=== PATIENT | male | born 1990 | race Caucasian/White ===

== ENCOUNTER 2018-02-06 12:20 | Emergency (ER) | payer OTHER, SELFPAY ==
[2018-02-06 12:21] VITALS: BP 148/93; PULSE 77; RESP 18; TEMP 36.6; O2SAT 99; BMI 50.1
[2018-02-06 12:49] VITALS: PULSE 62; RESP 18
[2018-02-06] MEDS: Ipratropium/Albuterol Sulfate 3 ML AMPUL.NEB INHALATION (12:49)
[2018-02-06 12:53] VITALS: O2SAT 98
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
[2018-02-06 13:29] VITALS: BP 141/86; PULSE 92; RESP 16; O2SAT 98
--- NOTE | 2018-02-06 13:30 | ED.RN ---
PT DISCHARGED WITH WORK RELEASE PAPERWORK AND DISCHARGE INSTRUCTIONS. PT WAS TOLD TO GO STRAIGHT TO [facility] TO FINISH WORKERS COMP PROCESS. PT VERBALIZED UNDERSTANDING.
== END 2018-02-06 13:31 | disposition home or self-care (01) ==
LOC: ED 13:25
PROVIDERS: Emergency Provider Emergency Medicine; Family Provider Family Medicine; PCP Family Medicine
DX: T54.91XA Toxic effect of unspecified corrosive substance, accidental (unintentional), initial encounter (principal); J68.0 Bronchitis and pneumonitis due to chemicals, gases, fumes and vapors; Y92.89 Other specified places as the place of occurrence of the external cause; F32.9 Major depressive disorder, single episode, unspecified; Z79.899 Other long term (current) drug therapy
CPT/HCPCS: 94640; 99282

== ENCOUNTER 2018-03-01 17:54 | Emergency (ER) | payer SELFPAY ==
[2018-03-01 17:54] VITALS: BP 142/114; PULSE 109; RESP 18; TEMP 36.2; O2SAT 99; BMI 50.8
[2018-03-01 18:03] VITALS: BP 161/96
--- NOTE | 2018-03-01 18:16 | ED.DCSUM_ITS ---
- ER Visit Summary Date of Service: 03/01/18 Chief Complaint: Left Achilles pain History of Present Illness: The patient is a 27 M who presents with left Achilles pain. He states 1 hour ago he was trying out for a football team when he heard a snap in the left Achilles area. He now has pain with walking. Is worse with movement. The pain is mostly in the distal left calf area. No history of any injuries to this Achilles tendon. He took nothing for it. Physical Examination: Vital signs are reviewed. Left ankle exam reveals loss of the Achilles tendon tension on the posterior part of the left ankle. He has painful range of motion. There is definitely a difference between the right ankle. Test Results: [] Emergency Department Course and Treatment: Patient appears and feels to have an Achilles tendon rupture. I will give him [place] for pain. He will be placed in a walking boot. He has crutches at home. I will give him orthopedic follow-up. Treatment Plan: [] Disposition: Discharge Impression: Left Achilles tendon rupture This note was generated with [employer] dictation software. It may contain incorrect words, spelling, and punctuation that were not noted in review of the chart prior to signing ED Disposition - Plan for ED Patient: Chief Complaint: Lower Extremity Injury Referrals: Nia Burr DO [Primary Care Provider] -
--- NOTE | 2018-03-01 18:16 | ED.DEP ---
ED Disposition - Plan for ED Patient: Disposition: Home or Assisted Living Chief Complaint: Lower Extremity Injury Instructions: ED Tendon Rupture Achilles Prescriptions: Hydrocodone Bitart/Apap 5-325 [[place] 5MG-325MG] 1 tab PO Q6H PRN PRN 3 Days #12 tab PRN Reason: Pain Referrals: Nia Burr DO [Primary Care Provider] - Glenn Adrian MD [STAFF PHYSICIAN] -
[2018-03-01] MEDS: HYDROcodone Bitartrate/Apap 5/325 Tablet PO (18:36)
== END 2018-03-01 18:42 | disposition home or self-care (01) ==
LOC: ED 18:28
PROVIDERS: Emergency Provider Emergency Medicine; Family Provider Family Medicine; PCP Family Medicine
DX: S86.012A Strain of left Achilles tendon, initial encounter (principal); X58.XXXA Exposure to other specified factors, initial encounter; Y93.61 Activity, american tackle football; Y92.9 Unspecified place or not applicable; Y99.8 Other external cause status
CPT/HCPCS: 99283

== ENCOUNTER 2018-10-01 21:10 | Emergency (ER) | payer OTHER, SELFPAY ==
[2018-10-01 21:10] VITALS: BP 186/103; PULSE 86; RESP 16; TEMP 36.8; O2SAT 98; BMI 53.1
--- NOTE | 2018-10-01 21:17 | RAD_ITS ---
STUDY: X-RAY - LEFT KNEE REASON FOR EXAM: Male, 27 years old. Left knee pain TECHNIQUE: 5 view(s) of the knee. COMPARISON: None. FINDINGS: There is no evidence of fracture or dislocation. There are no significant degenerative changes. There are no radiodense foreign bodies. RAD/Knee 4 or More Views IMPRESSION: No fracture or dislocation. Electronically Signed: Artie Muir, at 21:39 EDT Tel , Service support ,
--- NOTE | 2018-10-01 22:51 | ED.DEP ---
ED Disposition - Plan for ED Patient: Instructions: ED Sprain Knee Prescriptions: Naproxen [Naprosyn] 500 mg PO BID PRN #20 tablet Referrals: Nia Mcallister DO [Primary Care Provider] - Glenn Adrian MD [STAFF PHYSICIAN] -
--- NOTE | 2018-10-01 22:56 | ED.VISSUMM ---
- ER Visit Summary Date of Service: 10/01/18 Chief Complaint: Left knee pain History of Present Illness: The patient is a 27 M presenting with left knee pain. Patient states he hyperextended his knee a couple of weeks ago. He has had intermittent pain since that time. He has pain when he does squats. Today he was lifting and twisted his knee. The pain then worsened. He has tried no medications at home. He is able to ambulate. He denies other complaints. Physical Examination: Vitals are stable. Patient is afebrile. Alert no acute distress. HEENT exam is unremarkable. Neck is supple. Lungs are clear and equal bilaterally. Heart is regular rate and rhythm. Extremities left knee: Medial and lateral tenderness. No effusion. Active full range of motion. Extensor mechanism intact. Skin is warm and dry. No focal neurologic deficit. Remainder of exam is unremarkable. Emergency Department Course and Treatment: X-ray left knee shows no acute process. Patient was given naproxen. He is advised to follow-up with [facility]. Advised return to ED if worsening complaints. Disposition: Discharge home Impression: Left knee sprain This note was generated with [employer] dictation software. It may contain incorrect words, spelling, and punctuation that were not noted in review of the chart prior to signing ED Disposition - Plan for ED Patient: Instructions: ED Sprain Knee Prescriptions: Naproxen [Naprosyn] 500 mg PO BID PRN #20 tablet Referrals: Nia Mcallister DO [Primary Care Provider] - Glenn Adrian MD [STAFF PHYSICIAN] -
[2018-10-01] MEDS: Ibuprofen 600 MG Tablet PO (23:09)
[2018-10-01 23:11] VITALS: BP 160/100; PULSE 85; RESP 16; O2SAT 100
== END 2018-10-01 23:11 | disposition home or self-care (01) ==
LOC: ED 22:26
PROVIDERS: Emergency Provider Emergency Medicine; Family Provider Family Medicine; PCP Family Medicine
DX: S83.92XA Sprain of unspecified site of left knee, initial encounter (principal); X50.1XXA Overexertion from prolonged static or awkward postures, initial encounter; Y93.B9 Activity, other involving muscle strengthening exercises; Y92.9 Unspecified place or not applicable; Y99.9 Unspecified external cause status; F32.9 Major depressive disorder, single episode, unspecified; F41.9 Anxiety disorder, unspecified; Z79.899 Other long term (current) drug therapy
CPT/HCPCS: 73564; 99283

== ENCOUNTER 2019-01-23 08:15 | Day surgery (SDC) | payer OTHER, SELFPAY ==
[2019-01-23] VITALS (7 sets, daily range): BP systolic 117–171; BP diastolic 54–80; PULSE 71–86; RESP 16–18; TEMP 36.1–36.2; O2SAT 93–99; BMI 52.3
[2019-01-23] MEDS: Epinephrine (1 mg/ml) 1 MG/ML VIAL (11:03)
[2019-01-23] MEDS: Bupivacaine 0.25%-Epi/Pf 1:200,000 OPERA.SITE (11:03)
--- NOTE | 2019-01-23 11:44 | OP.PCM_ITS ---
Report of Operation Date of Procedure: 01/23/19 Pre-Operative Diagnosis: Chondromalacia left knee Post-Operative Diagnosis: 1. Grade 2 chondromalacia patellofemoral joint. 2. 2.0 cm x 1.0 cm focal Grade 4 chondromalacia medial femoral condyle Surgery/Procedure Performed:: Diagnostic and operative arthroscopy left knee with chondroplasty of the PFJ and microfracture of the MFC Description of Surgical Findings:: Primary Surgeon/Physician: Herve Mistry char filter operator: char filter operator: Pre-Operative Diagnosis: Chondromalacia left knee Post-Operative Diagnosis: same, see above Surgery/Procedure Performed: see above Estimated Blood Loss: 10 cc Specimen's Removed: none Type of Anesthesia: general ASA Class: 3 Indications: [ ] Patient has failed conservative measures and at this point has elected to undergo the above procedure. Procedure Description: The patient was greeted in the preoperative area. The [left ] knee was marked with surgical marker. Preoperative antibiotics were administered. The patient was then taken to the operating suite and placed in a supine position on operating room table. After adequate anesthesia was obtained and airway was secured a well-padded tourniquet was placed on patient's affected extremity. Leg was then prepped and draped in usual sterile fashion. Surgical timeout was performed and confirmed with all present and surgery was commenced. Standard anteromedial anterolateral portals were made and a 30? arthroscope was then inserted into the knee. [ ]. There was grade 2 chondromalacia of the trochlear groove of the femur. An arthroscopic shaver was used to perform a chondroplasty on this area to shape and smooth the roughened articular cartilage. The medial compartment was entered for viewing. Probing of the medial meniscus revealed that it was intact. There was a focal area of grade 4 chondromalacia that measured 2.0 cm x 1.0 cm. There was no overlying articular cartilage on this area. The ACL and PCL were probed and noted to be intact. The lateral compartment revealed no pathology of the meniscus or articular cartilage. A ring curette was used to remove any loose articular cartilage from around the defect and to prepare for microfracture. The shaver was used to remove any loose articular cartilage after curetting. A 30 degree Starla pick was used to perform a microfracture on the medial femoral condyle. Multiple holes were punched into the bone to promote vascular ingrowth in the lesion. At this point all instruments were removed. Arthroscopic portals were closed in a standard fashion. 20 cc of 0.25% Marcaine was then injected into the knee. Well-padded nonadherent dressing was applied and secured with an Link wrap. The patient was taken to the recovery room in stable condition. He will be non-weight bearing on crutches for 6 weeks and we will fit him with an manufacturing design engineer brace that he will wear for at least 3 months post-op. Type of Anesthesia:: General Anesthesiologist: Hardik Redmond Estimated Blood Loss (mL): 10 cc - Admit VTE Documentation VTE Present on Admission: No VTE Mechan Device Prophylaxis: SCD's VTE Pharm Prophylaxis ordered?: No Reason prophylaxis not ordered:: Treatment Not Indicated
== END 2019-01-23 13:20 | disposition home or self-care (01) ==
LOC: SDC 08:16 → AC 08:17
PROVIDERS: Family Provider Family Medicine; PCP Family Medicine; Referring Provider Orthopaedic Surgery; Visit Provider Orthopaedic Surgery
PROC: (CPT 29870; principal; 2019-01-23 10:20)
DX: M94.262 Chondromalacia, left knee (principal); M21.852 Other specified acquired deformities of left thigh; F32.9 Major depressive disorder, single episode, unspecified; F41.9 Anxiety disorder, unspecified; E66.01 Morbid (severe) obesity due to excess calories; Z68.43 Body mass index [BMI] 50.0-59.9, adult; F17.200 Nicotine dependence, unspecified, uncomplicated; Z79.899 Other long term (current) drug therapy
CPT/HCPCS: 29879; J7120; J2405

== ENCOUNTER → 2019-06-10 16:11 | Outpatient (CLI) | payer OTHER, MEDICAID, SELFPAY ==
[2019-01-23 08:34] VITALS: BMI 52.3
--- NOTE | 2019-06-10 16:14 | US_ITS ---
STUDY: SCROTUM ULTRASOUND REASON FOR EXAM: Male, 28 years old. LT TESTICLE SWOLLEN AND HARD -X COUPLE YEARS OFF AND ON -WORSE NOW TECHNIQUE: Ultrasound evaluation of the scrotum was performed with color Doppler and static saeed-scale imaging. COMPARISON: None. FINDINGS: RIGHT TESTICLE INTRATESTICULAR: There is a normal size of the right testicle. The right testicle measures 4.2 x 2.3 x 2.9 cm. There is a homogenous echotexture. There is normal arterial and normal venous vascularity. There is no demonstrated right testicular mass or cyst. Several punctate calcifications are present. EXTRATESTICULAR: The epididymis is normal in size. The epididymis head measures 1.3 x 0.7 cm. There is normal vascularity of the epididymis. There is no demonstrated epididymal cystic structure. There is no demonstrated hydrocele. There is no demonstrated varicocele. There is no demonstrated extratesticular mass or cyst. LEFT TESTICLE INTRATESTICULAR: There is diffuse enlargement of the left testicle. The left testicle measures 6.1 x 4.3 x 5.9 cm. There is a heterogeneous echotexture. There is increased arterial and venous vascularity. Prominent vessels are seen within the testis. Discrete lesion is not definitely seen. EXTRATESTICULAR: The epididymis is normal in size. The epididymis head measures cm. There is normal vascularity of the epididymis. There is no demonstrated epididymal cystic structure. There is a moderate size hydrocele with debris. There is no demonstrated varicocele. US/Testicular with Arterial Flow IMPRESSION: 1. Enlarged, hypervascular left testis with increased flow. In this patient with chronic symptoms, the finding is suspicious for malignancy. 2. 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 Although typically benign, these may be associated with germ cell tumor and follow-up is advised. 3. Moderate left hydrocele. Electronically Signed: Marcy Ferrer MD at 17:52 EST Tel , Service support ,
== END ==
PROVIDERS: PCP Family Medicine; Referring Provider Family Medicine; Visit Provider Family Medicine
DX: N50.89 Other specified disorders of the male genital organs (principal)
CPT/HCPCS: 76870; 93976

== ENCOUNTER → 2019-06-18 16:11 | Outpatient (CLI) | payer OTHER, SELFPAY ==
[2019-01-23 08:34] VITALS: BMI 52.3
[2019-06-18 17:20] LABS: Hematocrit 47.3 % (40-54); Hemoglobin 15.4 g/dL (13.0-16.5); Mean Corp Hgb Conc 32.6 g/dL (32-36); Mean Corpuscular Hgb 28.2 pg (27.0-32.0); Mean Corpuscular Volume 86.5 fL (80-94); Mean Platelet Vol. 9.4 fl (6.2-12.0); Platelet Count 308 K/mm3 (150-450); RBC Distribution Width CV 12.5 % (11.6-14.6); RBC Distribution Width SD 39.5 fl (35.1-43.9); Red Blood Count 5.47 M/mm3 (4.6-6.2); White Blood Count 10.9 K/mm3 (4.4-11.0)
[2019-06-18 18:51] LABS: Anion Gap 4 (5-15); BUN 16 mg/dL (7-18); BUN/Creat Ratio 13.4 RATIO (10-20); Calcium,Total 9.5 mg/dL (8.5-10.1); Chloride 105 mmol/L (98-107); Creatinine, Serum 1.19 mg/dL (0.70-1.30); EST Glomerular Filtration Rate 78 mL/min (>60); Est Glom Filt Rate - Afr Amer 94 mL/min (>60); Glucose 66 mg/dL (74-106); LDH 297 U/L (87-241); Potassium 3.9 mmol/L (3.5-5.1); Sodium Level 138 mmol/L (136-145)
[2019-06-22 11:50] LABS: HCG BETA-SUBUNIT QUANT. 5667 mIU/mL (0-3)
[2019-06-22 11:53] LABS: AFP, Tumor Marker 2.4 ng/mL (0.0-8.3)
== END ==
PROVIDERS: PCP Family Medicine; Referring Provider Urology; Visit Provider Urology
DX: Z01.812 Encounter for preprocedural laboratory examination (principal); N50.89 Other specified disorders of the male genital organs
CPT/HCPCS: 36415; 80048; 82105; 83615; 84702; 85027

== ENCOUNTER 2019-06-19 12:06 | Day surgery (SDC) | payer OTHER, MEDICAID, SELFPAY ==
[2019-01-23 08:34] VITALS: BMI 52.3
[2019-06-19] VITALS (7 sets, daily range): BP systolic 137–168; BP diastolic 67–87; PULSE 69–85; RESP 16–18; TEMP 36.6–37.7; O2SAT 93–95; BMI 52.9
--- NOTE | 2019-06-19 | TEST_PTH ---
PATIENT: JUDY LORENZO LOC: [facility] [place] U#:[id number] AGE/SX: 28/M ROOM: RE06/19/[address]: Dr. Zach Herron MD : 1990 BED: DIS: 06/19/2019 SPEC #: [id number] RECD: 06/20/19 14:28 STATUS: TRAM REOvidio #: [id number] BAILEY: 06/19/19 00:[address]: Zach Herron DEPT: SURGICAL PATHOLOGY RECD BY: Lencho Huynh ENTERED: 06/22/19 12:25 SP TYPE: TESTICLE OTHR DR: Dr. Nia Burr, DO Tissues: Testis, NOS Procedures: Surgery Specimen Level HEADER OPERATION: Radical orchiectomy PRE-OP DIAGNOSIS: Noninflammatory disorder of testis; swollen left testis TISSUE SUBMITTED: Left testis MICROSCOPIC DIAGNOSIS Right testis, radical orchiectomy: Choriocarcinoma. See cancer checklist below. AM:mercy 07/01/19 COMMENT TESTIS - RADICAL ORCHIECTOMY CANCER SUMMARY: Specimen laterality - left testis Tumor focality - single focus Tumor size - 6.6 cm Additional tumor nodules - not identified Histologic type - choriocarcinoma Tumor extension - confined to testis (no invasion of tunica vaginalis). The neoplasm involves the entire testis. No extension into caput epididymis or spermatic cord is seen. The caudae epididymis is not identified. Margins: Spermatic cord margin - negative for carcinoma. Other margins - soft tissue margin negative for carcinoma. Lymph-vascular invasion - not identified Regional lymph nodes - not present Serum tumor markers: LDH - 297 U/L Beta HCG - 5677 mIU/mL Additional pathologic findings - hypospermatogenesis PATHOLOGIC STAGE: T1 Nx Mx The above summary is in compliance with [employer] [place] [employer] (CAP) Cancer Protocols Checklist and [place] Joint Committee on Cancer (AJCC), Staging Manual, 8th Ed. This case was reviewed in consultation with Dr. Mae of [facility]. A tumor analysis showed the tumor to be positive for cytokeratins AE1/AE3 and HCG. The tumor is negative for PLAP and AFP. The morphologic findings and immunohistochemical studies are consistent with choriocarcinoma. The complete consultative report is viewable in patient's EMR. Clinical correlation is suggested. This case was reviewed and diagnosis discussed with Dr. Rock on 07/07/19. Case has been reviewed in consultation with Dr. Morse who concurs with the above diagnosis. IDC:SJ MICROSCOPIC DESCRIPTION Slides are reviewed. GROSS DESCRIPTION Received in fixative is one container labeled with the patient's name and designated left testis. The specimen consists of a testis with attached membranes measuring 10 x 7 x 6 cm and weighing 198 gm. The tunica vaginalis is inked. The specimen is serially sectioned to reveal a testis that has a cut surface that is hemorrhagic, indurated and dark red-aguirre in color. No areas of cyst formation or necrosis are identified. The testis proper measures 6.6 x 6 x 4.3 cm and is totally involved by the diffuse hemorrhagic process. The external surface of the tunica vaginalis is inked in black ink and this membrane easily separates from the testis. The soft tissue at margin of resection is grossly unremarkable. The rete testis is not grossly identified. Life Guard sections are submitted as follows: 1 - soft tissue at margin of resection and presumed caudae epididymis, 2 - testis with presumed caput epididymis, 3-12, c s s representative sections of testicular parenchyma. / AM:mercy 06/23/19 TC:0 CPT: 12178 ADDENDUM ADDENDUM ADDENDUM ADDENDUM ADDENDUM ADDENDUM ADDENDUM ADDENDUM ADDENDUM ADDENDUM 02/24/2020 09:19 ADDENDUM 02/24/2020 09:19 ADDENDUM 02/24/2020 09:19 ADDENDUM 02/24/2020 09:19 ADDENDUM 02/24/2020 09:19 This addendum is added to incorporate an outside pathology consultation report. The case was examined at [facility] (#[id number]) and the following diagnosis was rendered. 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 Please see complete above mentioned consultation report in EMR
[2019-06-19] MEDS: Lactated Ringers 1,000 ML 100 ML IV (12:34)
[2019-06-19] MEDS: Cefazolin 2 GM in 0.9% Normal Saline 100 ML IV (14:18)
--- NOTE | 2019-06-19 14:26 | PCM.DC.URO ---
Discharge Diet: Light diet - advance as tolerated Discharge Activity: Return to Normal Activity, May not drive while taking narcotic pain medications. Call your doctor if your incision/area has: Sudden Increased Bleeding Call your doctor if you observe: Fever of 101 or Higher Suture Line Care: Avoid Pulling/Pushing, Avoid Pinching/Bending Instructions: Radical Orchiectomy Allergies/Adverse Reactions: Allergies No Known Allergies Allergy (Verified 06/19/19 10:59) Medications to take at Discharge Citalopram [Celexa] 20 mg PO DAILY 02/06/18 Cephalexin [Keflex] 500 mg PO Q8 #14 cap 06/19/19 Hydrocodone/Acetaminophen [[place] 5-325 Tablet] 1 each PO Q4H PRN PRN 5 Days #20 tablet 06/19/19 The following prescriptions were given: Cephalexin [Keflex] 500 mg PO Q8 #14 cap Transmission Status: Pending to [facility] Hydrocodone/Acetaminophen [[place] 5-325 Tablet] 1 each PO Q4H PRN PRN 5 Days #20 tablet PRN Reason: Pain Score 1-10/10 Transmission Status: Sent to [facility] Primary Care Physician: Nia Burr DO [Primary Care Provider] - Test Results: Test results from this visit will be discussed in further detail at your follow-up appointment, if applicable. Please Follow Up With: Zach Herron MD When: in 2 weeks, please call to make an appointment.
[2019-06-19] MEDS: Bupivacaine Mpf 0.5% 30 ML VIAL (15:30)
--- NOTE | 2019-06-19 15:31 | OP.PCM_ITS ---
Report of Operation Date of Procedure: 06/19/19 Pre-Operative Diagnosis: Left testicular mass Post-Operative Diagnosis: The same Surgery/Procedure Performed:: Left radical orchiectomy via inguinal approach Description of Surgical Findings:: 28-year-old male presented the office for an evaluation has been having a slowly enlarging testicle on the left side thinks that this started about 6 months ago is now becoming very heavy and bothersome so he presented for an evaluation his primary care physician recommended he see us and we saw the patient yesterday as a working. On examination he has a large firm left testicle that is nontender. He had an ultrasound that demonstrated a heterogeneous mass within the testicle. Recommended we proceed with a left radical orchiectomy with an inguinal approach very likely the patient has some type of testicular cancer. We did draw tumor markers beforehand LDH, beta-hCG, and alpha-fetoprotein. All these are pending. We discussed the risk of the surgery including the risk of anesthesia, risk of bleeding, risk of infection. He understands he may need more treatment after the radical orchiectomy such as chemotherapy or even radiation therapy depending on the pathology and further staging work-up. 28-year-old male was taken back to the operating room at the smooth induction of general anesthesia he was placed upon the table, the left lower quadrant and inguinal area were shaved prepped and draped in usual sterile fashion, on examination had a very large 6 to 7 cm mass in the left hemiscrotum. I made a generous incision in the left inguinal area over the left inguinal canal dissect ed through skin subcutaneous fat and Soraida's fascia used retractors to retract down to the inguinal canal identified the inguinal canal it was a lot of fat was in the area given the patient's severe obesity quite difficult to identify the inguinal cord initially but eventually identified the inguinal cord and placed a high ligation tie around it I then freed up the fat around the cord and then I was able to push the testicle through the scrotum up to the inguinal incision I had to open up the inguinal incision larger. In order to allow the testicle to deliver through the inguinal incision. I then dissected between the testicle and the skin of the scrotum and came to the gubernaculum. The gubernaculum was suture-ligated and then the testicle was brought out of the inguinal incision. We then went to the cord piece by piece using snaps and then placed a Betzaida on the other side of the cord and transected the cord I then suture ligated each snap individually and then placed a stitch around the base of the supra suture ligation and there was no bleeding we then removed the rubber but drain around the spermatic cord again there was no bleeding from the spermatic cord we irrigated the area. We then closed the Soraida's fascia and subcutaneous fascial layer with 3-0 Vicryl and then the sub-dermis layer with 3-0 Vicryl and then we closed the skin layer of 4-0 Monocryl. Steri-Strips and dressings were placed on the incision patient anesthetic is currently being reversed and went spoke to the family regarding the findings. Type of Anesthesia:: General Drains: none - Admit VTE Documentation VTE Present on Admission: No
[2019-06-19] MEDS: Ketorolac 15 MG/ML Vial IV (16:12)
--- NOTE | 2019-07-15 09:03 | HP_ITS ---
Intake Vital Signs 07/15/19 Height 6 ft 1 in 07/15/19 Weight: 383 lb 07/15/19 BMI 50.5 07/15/19 BP 144/91 H 07/15/19 Blood Pressure Location Rt brachial 07/15/19 Position Sitting 07/15/19 Respiration 20 H 07/15/19 Pulse 83 07/15/19 Pulse Oximetry (%) 99 Intake Visit Reasons: Port Placement Consult Chief Complaint: Testicular cancer Allergies No Known Allergies Allergy (Verified 07/15/19 09:02) [facility] Medical History (Updated 07/15/19 @ 09:[address] Ramone Guerrero MD) Anxiety and depression (Acute) Back pain (Acute) Mass of left testicle (Acute) Sleep apnea (Acute) Surgical History (Updated 07/15/19 @ 09:01 by Kate Levine) History of knee surgery (Acute) History of orchiectomy, unilateral (Acute) Family History (Updated 07/15/19 @ 09:01 by Kate Levine) Mother Diabetes HPI HPI HPI: JUDY LROENZO, is a 28 M who presents to the office today for HPI HPI Surgical H&P: Yes HPI: JUDY LORENZO, is a 28 M who presents to the office today for Port consult. Patient has metastatic testicular cancer and is requiring a port for treatment. ROS General General: No weight change, appetite, fatigue, colon cancer, breast cancer or weakness HEENT HEENT: No difficulty swallowing, eye injury, eye surgery, swollen glands or hoarseness Endo Endocrine: No thyroid disease, diabetes mellitus, thyroid cancer, Hair loss, heat intolerance or cold intolerance Musc Musculoskeletal: Yes back problems and arthritis; no rheumatoid arthritis, gout or joint pain Cardio Cardiovascular: No murmur, pacemaker, heart disease, atrial fibrillation, high blood pressure, heart attack, heart stent, palpitations, shortness of breat with exertion or chest pain Psych Psychiatric: Yes depression and anxiety; no hearing voices Resp Respiratory: No shortness of breath, Yes sleep apnea, No cough, No COPD, No asthma, No emphysema, No wheezing Gastro Gastrointestinal: No abdominal pain, No nausea or vomiting, No diarrhea, No constipation, No blood in stool, No acid reflux, No hemorrhoids, No ulcers, No gallbladder problem, No black,tarry stools Daniel Hematologic: No blood thinners, No blood disorders, No bleeding, No anemia, No blood clots Neuro Neurologic: No weakness Exam Const General: cooperative Orientation: alert, oriented x3 Resp Effort & Inspection: normal respiratory effort Auscultation: clear to auscultation bilaterally Cardio Rate: regular rate Rhythm: regular rhythm Heart Sounds: no murmurs GI Inspection: non-distended Palpation: soft, nontender Assessment & Plan Problems 1. 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 Encounter for adjustment and management of vascular access device Z45.2 Plan Patient has testicular cancer with pulmonary metastasis. He requires a port placement for treatment. I discussed port placement with the patient in detail including the risks of bleeding, infection, pneumothorax. The patient understands all the risks and is willing to proceed. 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
== END 2019-06-19 17:33 | disposition home or self-care (01) ==
LOC: SDC 12:06 → AC 12:12
PROVIDERS: PCP Family Medicine; Referring Provider Family Medicine; Visit Provider Urology
PROC: (CPT 54530; principal; 2019-06-19 14:20)
DX: C62.92 Malignant neoplasm of left testis, unspecified whether descended or undescended (principal); N46.11 Organic oligospermia; F32.9 Major depressive disorder, single episode, unspecified; F41.9 Anxiety disorder, unspecified; F17.220 Nicotine dependence, chewing tobacco, uncomplicated; E66.01 Morbid (severe) obesity due to excess calories; Z68.43 Body mass index [BMI] 50.0-59.9, adult
CPT/HCPCS: 00926; 54530; 88309; J7120; J2405

== ENCOUNTER → 2019-07-09 07:45 | Outpatient (CLI) | payer OTHER, MEDICAID, SELFPAY ==
[2019-07-07 08:54] VITALS: BMI 50.1
--- NOTE | 2019-07-09 07:46 | CT_ITS ---
STUDY: CT ABDOMEN AND PELVIS WITH CONTRAST REASON FOR EXAM: Male, 28 years old. Initial staging testicular cancer, left orchiectomy 06/19/19, denies chest or abdomen pain, no prior surgery or medical history. RADIATION DOSAGE (If Supplied By Facility): CTDIvol = ( 27.28 ) mGy, DLP = ( 2993.77 ) mGycm TECHNIQUE: Transaxial images were obtained from the dome of the diaphragm to the symphysis pubis with oral contrast. Oral and IV Readi-CAT and 100mL Isovue-300 was administered. Sagittal and coronal images were reconstructed. Individualized dose optimization techniques were used for this CT. COMPARISON: None. FINDINGS: The visualized lung bases are unremarkable. The visualized portions of the heart are within normal limits. Normal liver. Normal gallbladder and extrahepatic biliary system. Normal spleen. Normal pancreas. Normal bilateral adrenal glands. Normal right kidney. Normal left kidney. Normal visualized stomach. Normal small intestine. Normal colon. The appendix is visualized and appears normal. Normal abdominal aorta. Normal inferior vena cava. Normal retroperitoneum. Normal urinary bladder. Postoperative fluid in the left side of the scrotum and left inguinal canal. There is a small umbilical hernia containing fat. Normal osseous structures. CT/Abdomen/Pelvis WITH Contrast IMPRESSION: No CT evidence of metastatic testicular cancer. Electronically Signed: Yoan Webb MD at 13:30 EST Tel , Service support ,
--- NOTE | 2019-07-09 07:46 | CT_ITS ---
STUDY: CT CHEST WITH CONTRAST REASON FOR EXAM: Male, 28 years old. Initial staging testicular cancer, left orchiectomy 06/19/19, denies chest or abdomen pain, no prior surgery or medical history. RADIATION DOSAGE (If Supplied By Facility): CTDIvol = ( 27.28 ) mGy, DLP = ( 2993.77 ) mGycm TECHNIQUE: Transaxial imaging was performed following intravenous administration of Oral and amp; IV Readi-CAT and amp; 100mL Isovue-300. Individualized dose optimization techniques were used for this CT. COMPARISON: None. FINDINGS: Multiple bilateral noncalcified pulmonary nodules consistent with metastatic disease. The largest nodule the right lung is a 2 cm nodule in the subpleural right lower lobe on image 88. The largest nodule in the left lung is 1.2 cm nodule in the subpleural left upper lobe the lungs on image 44. There is no demonstrated pleural abnormality. Normal heart and pericardium. Normal mediastinum. Normal hilar regions. Normal enhanced pulmonary arteries. Normal aorta arch and descending thoracic aorta. Normal osseous structures. There is no demonstrated abnormality of the visualized upper abdomen. CT/Chest WITH Contrast IMPRESSION: Bilateral pulmonary metastases as described above. Electronically Signed: Yoan Webb MD at 13:18 EST Tel , Service support ,
== END ==
PROVIDERS: PCP Family Medicine; Referring Provider Internal Medicine Hematology & Oncology; Visit Provider Internal Medicine Hematology & Oncology
DX: C62.90 Malignant neoplasm of unspecified testis, unspecified whether descended or undescended (principal); C78.02 Secondary malignant neoplasm of left lung; C78.01 Secondary malignant neoplasm of right lung
CPT/HCPCS: 71260; 74177; Q9967

== ENCOUNTER → 2019-07-14 10:55 | Outpatient (CLI) | payer OTHER, SELFPAY ==
[2019-07-14 09:58] VITALS: BMI 49.9
--- NOTE | 2019-07-14 15:32 | PFTCOMP ---
COMPLETE PULMONARY FUNCTION TEST INTERPRETATION Brief HPI: Patient is a 28 year old male, currently under the care of Dr. Rock, who presents to [facility] for complete pulmonary function tests secondary to diagnosis of pre-chemo. Respiratory therapist reports good effort and reproducible results. Interpretation: Forced expiration spirometry shows no large airways obstructive ventilatory defect with an FEV1 of 98% predicted. There is no significant bronchodilator response by strict ATS criteria. Spirograms are of good quality and plateau normally. The respiratory flow volume loop shows a normal pattern. Lung volumes by body plethysmography show a normal total lung capacity at 8.07 L, 106% predicted. All other lung volumes are within normal limits. Diffusion capacity by carbon monoxide is normal at 89% predicted. The airway resistance is normal. No previous pulmonary function tests were available for review. Impression: These pulmonary function tests are within normal limits.
== END ==
PROVIDERS: PCP Family Medicine; Referring Provider Internal Medicine Hematology & Oncology; Visit Provider Internal Medicine Hematology & Oncology
DX: C62.92 Malignant neoplasm of left testis, unspecified whether descended or undescended (principal); C78.00 Secondary malignant neoplasm of unspecified lung
CPT/HCPCS: 94060; 94726; 94729

== ENCOUNTER 2019-07-16 07:15 | Day surgery (SDC) | payer OTHER, MEDICAID, SELFPAY ==
[2019-07-15 09:03] VITALS: BMI 49.9
--- NOTE | 2019-07-15 09:03 | HP_ITS ---
Intake Vital Signs 07/15/19 Height 6 ft 1 in 07/15/19 Weight: 383 lb 07/15/19 BMI 50.5 07/15/19 BP 144/91 H 07/15/19 Blood Pressure Location Rt brachial 07/15/19 Position Sitting 07/15/19 Respiration 20 H 07/15/19 Pulse 83 07/15/19 Pulse Oximetry (%) 99 Intake Visit Reasons: Port Placement Consult Chief Complaint: Testicular cancer Allergies No Known Allergies Allergy (Verified 07/15/19 09:02) [facility] Medical History (Updated 07/15/19 @ 09:[address] Ramone Guerrero MD) Anxiety and depression (Acute) Back pain (Acute) Mass of left testicle (Acute) Sleep apnea (Acute) Surgical History (Updated 07/15/19 @ 09:01 by Kate Levine) History of knee surgery (Acute) History of orchiectomy, unilateral (Acute) Family History (Updated 07/15/19 @ 09:01 by Kate Levine) Mother Diabetes HPI HPI HPI: JUDY LORENZO, is a 28 M who presents to the office today for HPI HPI Surgical H&P: Yes HPI: JUDY LORENZO, is a 28 M who presents to the office today for Port consult. Patient has metastatic testicular cancer and is requiring a port for treatment. ROS General General: No weight change, appetite, fatigue, colon cancer, breast cancer or weakness HEENT HEENT: No difficulty swallowing, eye injury, eye surgery, swollen glands or hoarseness Endo Endocrine: No thyroid disease, diabetes mellitus, thyroid cancer, Hair loss, heat intolerance or cold intolerance Musc Musculoskeletal: Yes back problems and arthritis; no rheumatoid arthritis, gout or joint pain Cardio Cardiovascular: No murmur, pacemaker, heart disease, atrial fibrillation, high blood pressure, heart attack, heart stent, palpitations, shortness of breat with exertion or chest pain Psych Psychiatric: Yes depression and anxiety; no hearing voices Resp Respiratory: No shortness of breath, Yes sleep apnea, No cough, No COPD, No asthma, No emphysema, No wheezing Gastro Gastrointestinal: No abdominal pain, No nausea or vomiting, No diarrhea, No constipation, No blood in stool, No acid reflux, No hemorrhoids, No ulcers, No gallbladder problem, No black,tarry stools Daniel Hematologic: No blood thinners, No blood disorders, No bleeding, No anemia, No blood clots Neuro Neurologic: No weakness Exam Const General: cooperative Orientation: alert, oriented x3 Resp Effort & Inspection: normal respiratory effort Auscultation: clear to auscultation bilaterally Cardio Rate: regular rate Rhythm: regular rhythm Heart Sounds: no murmurs GI Inspection: non-distended Palpation: soft, nontender Assessment & Plan Problems 1. 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 Encounter for adjustment and management of vascular access device Z45.2 Plan Patient has testicular cancer with pulmonary metastasis. He requires a port placement for treatment. I discussed port placement with the patient in detail including the risks of bleeding, infection, pneumothorax. The patient understands all the risks and is willing to proceed. 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 There are no clinical changes since date of exam.
[2019-07-15 10:20] VITALS: BMI 51.2
[2019-07-16] VITALS (7 sets, daily range): BP systolic 139–162; BP diastolic 76–83; PULSE 65–80; RESP 16–18; TEMP 36.1–36.7; O2SAT 94–98; BMI 52.6
[2019-07-16] MEDS: Lactated Ringers 1,000 ML 100 ML IV (08:01)
[2019-07-16] MEDS: Bupiv/Epi 0.5% Mpf 30 ML Vial (09:30)
--- NOTE | 2019-07-16 09:42 | RAD_ITS ---
STUDY: X-RAY CHEST REASON FOR EXAM: Male, 28 years old. Post port placement TECHNIQUE: Single AP portable view of the chest. COMPARISON: None. FINDINGS: A right-sided portacatheter as been placed. The tip is in the proximal portion of the right atrium. Bilateral pulmonary nodules. There is no demonstrated pleural abnormality. Normal size heart. Normal mediastinum and bernard. Normal visualized pulmonary arteries. Normal visualized aortic arch and descending thoracic aorta. Normal visualized thoracic spine. Normal visualized ribs, clavicles, and shoulders. There is no demonstrated abnormality of the visualized soft tissue structures of the upper abdomen. RAD/CXR for Line Placement IMPRESSION: The tip of the right portacatheter is in the proximal portion of the right atrium. Bilateral pulmonary nodules. Electronically Signed: Ramiro Jiménez, at 10:16 EST , Service support ,
--- NOTE | 2019-07-16 09:42 | OP.PCM_ITS ---
Problem List (1) Encounter for adjustment and management of vascular access device Status: Acute Report of Operation Date of Procedure: 07/16/19 Pre-Operative Diagnosis: Need for vascular access port. Metastatic testicular cancer Post-Operative Diagnosis: Same Surgery/Procedure Performed:: Ultrasound fluoroscopy guided right chest port placement utilizing right IJ Description of Procedure: After obtaining informed consent patient was brought back to the operating room MAC anesthesia was induced and the right chest and neck were prepped in normal sterile fashion. Ultrasound was used to evaluate both IJs and the right IJ was selected. Next, using a needle, the right IJ was accessed and a guidewire was passed on into the superior vena cava under fluoroscopy guidance. A small in cision was made over the puncture site and the dilator introducer was placed over the guidewire. Next this was capped and the pocket was made for the port. 1% lidocaine with epinephrine was injected in the proposed port site. An incision was made with scalpel. Electrocautery was used to make a pocket under the skin and subcutaneous tissue. Hemostasis was obtained. Next, the catheter was tunneled up to the neck incision site and placed through the introducer. The peel-away introducer was removed and the position of the catheter was confirmed on fluoroscopy. Next, the catheter was trimmed and attached to the port with the locking device. Interrupted 2-0 Vicryl sutures were used to anchor the port to the chest wall and then the port was placed inside the pocket. The pocket was then flushed with saline and the port irrigated with saline. There was good blood return and the port flushed easily. Next, heparin was injected into the port. The skin was closed with subcutaneous interrupted 3-0 Vicryl sutures. A single 3-0 Vicryl sutures placed under the skin at the neck incision site. Steri-Strips were placed as well as op sites. Patient tolerated procedure well, was taken to PACU in stable condition. Chest x-ray will be obtained. Grafts/Implants Used: 8 [employer] - Admit VTE Documentation VTE Mechan Device Prophylaxis: SCD's
--- NOTE | 2019-07-16 09:44 | DCINST_ITS ---
Discharge Diet: No Restrictions - Pain medication may cause nausea. You should typically eat light foods as you take your pain medication. Discharge Activity: Return to Normal Activity, May Shower - with your bandage in place in 1-2 days after surgery. DO NOT SHOWER WHEN YOUR PORT IS ACCESSED. Call your doctor if your incision/area has: Continuous Slow Oozing, Sudden Increased Bleeding, Increased Pain/ Swelling, Increased Redness Call your doctor if you observe: Fever of 101 or Higher Remove Dressing in (days):: 3 - When you remove the bandage, leave the steri- strips intact until they fall off. Allergies/Adverse Reactions: Allergies No Known Allergies Allergy (Verified 07/15/19 13:32) Medications to take at Discharge Citalopram [Celexa] 20 mg PO DAILY 02/06/18 Cholecalciferol (VIT D3) [Vitamin D] 1,000 unit PO DAILY 07/15/19 Ferrous Sulfate 325 mg PO DAILY@0800 07/15/19 Glucosamine/MSM/Chondroitin A [Glucosamine Chondroit MSM Tab] 3 ea PO DAILY 07/15/19 Lidocaine/Prilocaine [Lidocaine-Prilocaine Cream] 1 applicatio TP DAILY PRN PRN 30 Days #1 tube 07/15/19 Ondansetron [Ondansetron Odt] 8 mg PO Q8H PRN PRN 10 Days #30 tab.rapdis 07/15/19 Prochlorperazine Maleate 10 mg PO Q6H PRN PRN 10 Days #30 tab 07/15/19 Vitamin B Complex 1 ea PO DAILY 07/15/19 Zinc 50 mg PO DAILY 07/15/19 omega-3 fatty acids 1,000 mg capsule 1,000 mg PO DAILY 07/15/19 Test Results: Test results from this visit will be discussed in further detail at your follow- up appointment, if applicable. Please Follow Up With: Ramone Guerrero MD When: Please call to schedule 2 week follow up appointment. [phone]
== END 2019-07-16 10:47 | disposition home or self-care (01) ==
LOC: SDC 07:17 → AC 07:18
PROVIDERS: PCP Family Medicine; Visit Provider Surgery
PROC: (CPT 36561; principal; 2019-07-16 08:45)
DX: Z45.2 Encounter for adjustment and management of vascular access device (principal); C62.92 Malignant neoplasm of left testis, unspecified whether descended or undescended; C78.00 Secondary malignant neoplasm of unspecified lung; F32.9 Major depressive disorder, single episode, unspecified; F41.9 Anxiety disorder, unspecified; E66.01 Morbid (severe) obesity due to excess calories; Z68.43 Body mass index [BMI] 50.0-59.9, adult; Z87.891 Personal history of nicotine dependence
CPT/HCPCS: 00532; 36561; 71045; 77001; J7120; C1788

== ENCOUNTER → 2019-07-31 11:47 | Outpatient (CLI) | payer OTHER, MEDICAID, SELFPAY ==
[2019-07-24 08:49] VITALS: BMI 50.8
[2019-07-27 09:13] VITALS: BMI 50.3
--- NOTE | 2019-07-31 11:47 | MRI_ITS ---
STUDY: MRI BRAIN WITH AND WITHOUT CONTRAST REASON FOR EXAM: Male, 28 years old. Staging testicular CA with lung mets. No complaints from patient TECHNIQUE: Standardized multiplanar fat and water weighted pulse sequences were obtained. 30ml Dotarem via port was administered for the contrast portion of the examination. COMPARISON: None. FINDINGS: Normal size of the ventricles and extra-axial spaces for the patient''s age. Normal white matter tracts of the supratentorial brain. There is no evidence for recent intracranial ischemia or other cause of cytotoxic edema on diffusion weighted imaging (DWI). Normal T2* images of the brain without demonstrated susceptibility artifact. There is no demonstrated hemosiderin stain. Normal bilateral basal ganglia. Normal thalami. There is no extra-axial fluid accumulation. Normal flow voids within the major intracranial circulation suggesting patency by spin echo criteria. Normal venous enhancement. There is no enhancing intra-axial or extra-axial abnormality. Normal sella turcica, pituitary gland, infundibular stalk, optic chiasm and hypothalamus. Normal tectal plate and pineal gland. Normal midbrain, cade and medulla. Normal cerebellum. Normal basal cisterns. Normal bilateral temporal bones. Normal bilateral internal auditory canals. No demonstrated orbital abnormality, within the constraints of a routine brain study. Normal visualized paranasal sinuses. Normal calvarium and skull base. Normal visualized soft tissue structures. Normal visualized upper cervical spine. MRI/Brain W/WO Contrast IMPRESSION: Normal unenhanced and enhanced MRI of the brain. No MR evidence of metastatic disease. Electronically Signed: Yoan Webb MD at 13:56 EDT Tel , Service support ,
[2019-07-31] MEDS: 0.9% Saline Lock 10 ML Syringe IV (12:43)
== END ==
PROVIDERS: PCP Family Medicine; Referring Provider Internal Medicine Hematology & Oncology; Visit Provider Internal Medicine Hematology & Oncology
DX: C62.92 Malignant neoplasm of left testis, unspecified whether descended or undescended (principal)
CPT/HCPCS: 70553; A9575; A4216

== ENCOUNTER → 2019-10-07 07:21 | Outpatient (CLI) | payer OTHER, MEDICAID, SELFPAY ==
[2019-09-14 09:36] VITALS: BMI 50.4
--- NOTE | 2019-10-07 07:25 | CT_ITS ---
STUDY: CT ABDOMEN AND PELVIS WITH CONTRAST REASON FOR EXAM: Male, 28 years old. ASSESS RESPONSE TO TREATMENT, LAST CHEMO SEPTEMBER 14 TESTICULAR CA WITH LUNG METS, SURG-left orchiectomy RADIATION DOSAGE (If Supplied By Facility): CTDIvol = ( 25.91 ) mGy, DLP = ( 2801.41 ) mGycm TECHNIQUE: Transaxial images were obtained from the dome of the diaphragm to the symphysis pubis without oral contrast. IV 100mL Isovue-300 was administered. Sagittal and coronal images were reconstructed. Individualized dose optimization techniques were used for this CT. COMPARISON: Comparison is made with prior examination dated July 09, 2019. FINDINGS: A wilmar catheter is seen within the superior vena cava. There is a 1.1 cm noncalcified nodule in the lateral peripheral aspect of the left lower lobe. This has decreased in size as compared to prior study. The previously seen nodule in the posterior medial aspect of the left lower globe has decreased in size as well. It presently measures 5.5 mm. The previously seen nodule in the right lower lobe posteriorly as decrease in size. It presently measures 5.5 mm. The visualized portions of the heart are within normal limits. Normal liver. Normal gallbladder and extrahepatic biliary system. Normal spleen. Normal pancreas. Normal bilateral adrenal glands. Normal right kidney. Normal left kidney. Normal visualized stomach. Normal small intestine. There are scattered colonic diverticula consistent with diverticulosis. The appendix is visualized and appears normal. Normal abdominal aorta. Normal inferior vena cava. There is borderline retroperitoneal lymphadenopathy with enlarged nodes no greater than 10mm in the short axis diameter. Normal urinary bladder. There is a small umbilical hernia containing fat. Normal osseous structures. CT/Abdomen/Pelvis W IV Cont ONLY IMPRESSION: Interval decrease in size of the previously seen pulmonary nodules at the lung bases. Electronically Signed: Ramiro Jiménez, at 8:31 EDT , Service support ,
--- NOTE | 2019-10-07 07:25 | CT_ITS ---
STUDY: CT CHEST WITH CONTRAST REASON FOR EXAM: Male, 28 years old. ASSESS RESPONSE TO TREATMENT, LAST CHEMO SEPTEMBER 14, TESTICULAR CA WITH LUNG METS, SURG-left orchiectomy RADIATION DOSAGE (If Supplied By Facility): CTDIvol = ( 25.91 ) mGy, DLP = ( 2801.41 ) mGycm TECHNIQUE: Transaxial imaging was performed following intravenous administration of IV 100mL Isovue-300. Multiplanar coronal and sagittal images were reformatted. Individualized dose optimization techniques were used for this CT. COMPARISON: Comparison is made with prior examination dated July 09, 2019. FINDINGS: A right-sided portacatheter is seen with the tip in the superior vena cava. Since prior study, the previously seen multiple pulmonary nodules have markedly decreased in size. The previously seen nodules in the left upper lobe as seen on axial image #35 from prior examination have resolved. The previously seen nodule in the anterior aspect of the left upper lobe as seen on prior examination axial image #44 has decreased in size. It presently measures 6 mm. The previously seen nodular density in the right upper lobe as seen on prior study on image #44 has decreased in size and presently measures 2 mm. There is no demonstrated pleural abnormality. Normal heart and pericardium. Normal mediastinum. Normal hilar regions. Normal enhanced pulmonary arteries. Normal aorta arch and descending thoracic aorta. Normal osseous structures. There is no demonstrated abnormality of the visualized upper abdomen. CT/Chest WITH Contrast IMPRESSION: Interval decrease in size of the pulmonary nodules with resorption of several pulmonary nodules. Electronically Signed: Ramiro Jiménez, at 8:41 EDT , Service support ,
[2019-10-07] MEDS: 0.9% Saline Lock 10 ML Syringe IV (07:50)
[2019-10-07 08:02] LABS: Absolute Lymphocyte Count 2.61 X10^3/uL (0.83-4.51); Absolute Neutrophil Count 4.4 X10^3/uL (2.0-7.7); Basophil# 0.04 X10^3/uL; Basophil% 0.5 % (0-1); Eosinophil# 0.13 X10^3/uL; Eosinophils% 1.6 % (0-5); Hematocrit 37.1 % (40-54); Hemoglobin 12.4 g/dL (13.0-16.5); Lymphocyte # 2.61 X10^3/ul (4.0); Lymphocyte % 32.1 % (19-41); Mean Corp Hgb Conc 33.4 g/dL (32-36); Mean Corpuscular Hgb 29.8 pg (27.0-32.0); Mean Corpuscular Volume 89.2 fL (80-94); Mean Platelet Vol. 9.4 fl (6.2-12.0); Monocyte# 0.88 X10^3/uL; Monocyte% 10.8 % (0-10); NRBC Flagged by Analyzer 0 % (0-5); Neutrophil # 4.44 X10^3/uL (2.7-7.7); Neutrophil % 54.6 % (47-70); Platelet Count 311 K/mm3 (150-450); RBC Distribution Width CV 15.2 % (11.6-14.6); RBC Distribution Width SD 48.4 fl (35.1-43.9); Red Blood Count 4.16 M/mm3 (4.6-6.2); White Blood Count 8.1 K/mm3 (4.4-11.0)
[2019-10-07 08:24] LABS: ALB/GLOB Ratio 0.9 RATIO (0.9-2.4); AST(SGOT) 50 U/L (15-37); Alanine Aminotransfer ALT/SGPT 141 U/L (16-61); Albumin, Serum 3.7 g/dL (3.2-5.0); Alkaline Phosphatase 91 U/L (45-117); Anion Gap 5 (5-15); BUN 15 mg/dL (7-18); BUN/Creat Ratio 12.9 RATIO (10-20); Calcium,Total 9.3 mg/dL (8.5-10.1); Chloride 108 mmol/L (98-107); Creatinine, Serum 1.16 mg/dL (0.70-1.30); EST Glomerular Filtration Rate 80 mL/min (>60); Est Glom Filt Rate - Afr Amer 97 mL/min (>60); Globulin 4.2 g/dL (2.2-4.2); Glucose 92 mg/dL (74-106); LDH 206 U/L (87-241); Potassium 3.7 mmol/L (3.5-5.1); Protein, Total 7.9 g/dL (6.4-8.2); Sodium Level 142 mmol/L (136-145)
[2019-10-08 11:30] LABS: AFP, Tumor Marker 2.7 ng/mL (0.0-8.3); HCG BETA-SUBUNIT QUANT. < 1 mIU/mL (0-3)
== END ==
PROVIDERS: PCP Family Medicine; Referring Provider Internal Medicine Hematology & Oncology; Visit Provider Internal Medicine Hematology & Oncology
DX: C62.92 Malignant neoplasm of left testis, unspecified whether descended or undescended (principal); C78.00 Secondary malignant neoplasm of unspecified lung
CPT/HCPCS: 36415; 71260; 74177; 80053; 82105; 83615; 84702; 85025; Q9967; A4216

== ENCOUNTER → 2020-01-11 13:47 | Outpatient (CLI) | payer MEDICAID, SELFPAY ==
[2019-12-14 10:54] VITALS: BMI 50.8
--- NOTE | 2020-01-11 13:47 | CT_ITS ---
STUDY: CT ABDOMEN AND PELVIS WITH CONTRAST REASON FOR EXAM: Male, 29 years old. 3 MONTH TESTICULAR CANCER FOLLOW UP, CHEMO X 9 WKS, LEFT TESTICLE REMOVED RADIATION DOSAGE (If Supplied By Facility): CTDIvol = ( 23.57 ) mGy, DLP = ( 2907.40 ) mGycm TECHNIQUE: Transaxial images were obtained from the dome of the diaphragm to the symphysis pubis without oral contrast. IV 100mL Isovue-370 was administered. Sagittal and coronal images were reconstructed. Individualized dose optimization techniques were used for this CT. COMPARISON: Comparison is made with prior examination dated 10/07/2019. FINDINGS: The previously seen 1.1 cm pleural-based nodule in the lateral aspect of the right lower lobe has decreased further in size. It presently measures 5.9 mm. The visualized portions of the heart are within normal limits. Normal liver. Normal gallbladder and extrahepatic biliary system. Normal spleen. Normal pancreas. Normal bilateral adrenal glands. Normal right kidney. Normal left kidney. Normal visualized stomach. Normal small intestine. Normal colon. The appendix is visualized and appears normal. Normal abdominal aorta. Normal inferior vena cava. There is borderline retroperitoneal lymphadenopathy with enlarged nodes no greater than 10mm in the short axis diameter. Normal urinary bladder. There is a small umbilical hernia containing fat. Normal osseous structures. CT/Abdomen/Pelvis W IV Cont ONLY IMPRESSION: Normal enhanced CT of the abdomen and pelvis. Further decrease in size of the pleural-based nodule in the right lower lobe presently measuring 5.9 mm. Electronically Signed: Ramiro Jiménez, at 14:27 EDT , Service support ,
--- NOTE | 2020-01-11 13:47 | CT_ITS ---
STUDY: CT CHEST WITH CONTRAST REASON FOR EXAM: Male, 29 years old. 3 MONTH FOLLOW UP, CHEMO X 9 WKS, TESTICULAR CA, LEFT TESTICLE REMOVED RADIATION DOSAGE (If Supplied By Facility): CTDIvol = ( 23.57 ) mGy, DLP = ( 2907.40 ) mGycm TECHNIQUE: Transaxial imaging was performed following intravenous administration of IV 100mL Isovue-370. Multiplanar coronal and sagittal images were reformatted. Individualized dose optimization techniques were used for this CT. COMPARISON: Comparison is made with prior examination dated 10/07/2019. FINDINGS: A right-sided portacatheter is seen with the tip in the superior vena cava. There now is evidence of a 1.7 cm x 1 cm nodule in the right upper lobe as seen on axial image #50. The previously seen nodule in the anterior aspect of the left upper lobe as decrease in size. It presently measures 1 mm. There is no demonstrated pleural abnormality. Normal heart and pericardium. Normal mediastinum. Normal hilar regions. Normal enhanced pulmonary arteries. Normal aorta arch and descending thoracic aorta. There are mild degenerative changes of the thoracic spine. There is no demonstrated abnormality of the visualized upper abdomen. CT/Chest WITH Contrast IMPRESSION: There is a new 1.7 cm x 1 cm noncalcified nodule in the right upper lobe as seen on axial image #50. Electronically Signed: Ramiro Jiménez, at 14:19 EDT , Service support ,
[2020-01-11] MEDS: 0.9% Saline Lock 10 ML Syringe IV (14:17)
== END ==
PROVIDERS: PCP Family Medicine; Referring Provider Internal Medicine Hematology & Oncology; Visit Provider Internal Medicine Hematology & Oncology
DX: C62.92 Malignant neoplasm of left testis, unspecified whether descended or undescended (principal); C78.00 Secondary malignant neoplasm of unspecified lung
CPT/HCPCS: 71260; 74177; 82105; 83615; 84702; Q9967; A4216

== ENCOUNTER → 2020-02-10 07:00 | Outpatient (CLI) | payer MEDICAID, SELFPAY ==
[2020-01-14 11:29] VITALS: BMI 51.2
--- NOTE | 2020-02-10 07:13 | MRI_ITS ---
STUDY: MRI BRAIN WITH AND WITHOUT CONTRAST REASON FOR EXAM: Male, 29 years old. testicular ca, staging TECHNIQUE: Standardized multiplanar fat and water weighted pulse sequences were obtained. IV Dotarem 30ml was administered for the contrast portion of the examination. COMPARISON: 07/31/2019 FINDINGS: Normal size of the ventricles and extra-axial spaces for the patient''s age. Normal white matter tracts of the supratentorial brain. There is no evidence for recent intracranial ischemia or other cause of cytotoxic edema on diffusion weighted imaging (DWI). Normal T2* images of the brain without demonstrated susceptibility artifact. There is no demonstrated hemosiderin stain. Normal bilateral basal ganglia. Normal thalami. There is no extra-axial fluid accumulation. Normal flow voids within the major intracranial circulation suggesting patency by spin echo criteria. Normal venous enhancement. There is no enhancing intra-axial or extra-axial abnormality. Normal sella turcica, pituitary gland, infundibular stalk, optic chiasm and hypothalamus. Normal tectal plate and pineal gland. Normal midbrain, cade and medulla. Normal cerebellum. Normal basal cisterns. Normal bilateral temporal bones. Normal bilateral internal auditory canals. No demonstrated orbital abnormality, within the constraints of a routine brain study. Normal visualized paranasal sinuses. Normal calvarium and skull base. Normal visualized soft tissue structures. Normal visualized upper cervical spine. MRI/Brain W/WO Contrast IMPRESSION: Normal unenhanced and enhanced MRI of the brain. No MR evidence metastatic disease. Electronically Signed: Yoan Webb MD at 9:21 EDT Tel , Service support ,
--- NOTE | 2020-02-10 09:05 | CT_ITS ---
STUDY: CT CHEST WITH CONTRAST REASON FOR EXAM: Male, 29 years old. NEOPLASM LEFT TESTIS. REMOVED LEFT TESTICLE FEB METS TO LUNG RADIATION DOSAGE (If Supplied By Facility): CTDIvol = ( 25.47 ) mGy, DLP = ( 2990.64 ) mGycm TECHNIQUE: Transaxial imaging was performed following intravenous administration of IV 100mL Isovue-300. Individualized dose optimization techniques were used for this CT. COMPARISON: 01/11/2020 FINDINGS: Left internal jugular chest port Interval increase in size of nodule in the right upper lobe the lungs from 1.7 cm in diameter to 3.2 cm in diameter consistent with worsening metastasis. However, no new nodules. There is no demonstrated pleural abnormality. Normal heart and pericardium. Normal mediastinum. Normal hilar regions. Normal enhanced pulmonary arteries. Normal aorta arch and descending thoracic aorta. Normal osseous structures. There is no demonstrated abnormality of the visualized upper abdomen. CT/Chest WITH Contrast IMPRESSION: Enlarging right upper lobe of the metastasis but no new lesions. Electronically Signed: Yoan Webb MD at 9:48 EDT Tel , Service support ,
--- NOTE | 2020-02-10 09:12 | CT_ITS ---
STUDY: CT ABDOMEN AND PELVIS WITH CONTRAST REASON FOR EXAM: Male, 29 years old. NEOPLASM LEFT TESTIS. REMOVED LEFT TESTICLE FE METS TO LUNG RADIATION DOSAGE (If Supplied By Facility): CTDIvol = ( 25.47 ) mGy, DLP = ( 2990.64 ) mGycm TECHNIQUE: Transaxial images were obtained from the dome of the diaphragm to the symphysis pubis without oral contrast. IV 100mL Isovue-300 was administered. Sagittal and coronal images were reconstructed. Individualized dose optimization techniques were used for this CT. COMPARISON: 01/11/2020 FINDINGS: The visualized lung bases are unremarkable. The visualized portions of the heart are within normal limits. Normal liver. Normal gallbladder and extrahepatic biliary system. Normal spleen. Normal pancreas. Normal bilateral adrenal glands. Normal right kidney. Normal left kidney. Normal visualized stomach. Normal small intestine. Normal colon. The appendix is visualized and appears normal. Normal abdominal aorta. Normal inferior vena cava. Normal retroperitoneum. Normal urinary bladder. There is a small umbilical hernia containing fat. Normal osseous structures. CT/Abdomen/Pelvis WITH Contrast IMPRESSION: Normal enhanced CT of the abdomen and pelvis. No CT evidence metastatic disease. Electronically Signed: Yoan Webb MD at 9:52 EDT Tel , Service support ,
[2020-02-10] MEDS: 0.9% Saline Lock 10 ML Syringe IV (09:37)
== END ==
PROVIDERS: PCP Family Medicine
DX: C62.92 Malignant neoplasm of left testis, unspecified whether descended or undescended (principal); Z00.6 Encounter for examination for normal comparison and control in clinical research program
CPT/HCPCS: 70553; 71260; 74177; A9575; Q9967; A4216

== ENCOUNTER → 2020-02-29 08:26 | Outpatient (CLI) | payer MEDICAID, SELFPAY ==
[2020-01-14 11:29] VITALS: BMI 51.2
[2020-02-29 09:06] LABS: Differential Indicated MANUAL DIFF; Hematocrit 44.2 % (40-54); Hemoglobin 14.5 g/dL (13.0-16.5); Mean Corp Hgb Conc 32.8 g/dL (32-36); Mean Corpuscular Hgb 27.9 pg (27.0-32.0); Mean Corpuscular Volume 85.2 fL (80-94); Mean Platelet Vol. 10.2 fl (6.2-12.0); POSITIVE COUNT YES; POSITIVE MORPHOLOGY YES; Platelet Count 165 K/mm3 (150-450); RBC Distribution Width CV 11.8 % (11.6-14.6); RBC Distribution Width SD 36.2 fl (35.1-43.9); Red Blood Count 5.19 M/mm3 (4.6-6.2); White Blood Count 5.9 K/mm3 (4.4-11.0)
[2020-02-29 09:22] LABS: AST(SGOT) 29 U/L (15-37); Alanine Aminotransfer ALT/SGPT 122 U/L (16-61); Albumin, Serum 3.4 g/dL (3.2-5.0); Alkaline Phosphatase 74 U/L (45-117); Anion Gap 7 (5-15); BUN 17 mg/dL (7-18); BUN/Creat Ratio 13.7 RATIO (10-20); Bilirubin, Direct 0.22 mg/dL (0.00-0.30); Calcium,Total 8.7 mg/dL (8.5-10.1); Chloride 100 mmol/L (98-107); Creatinine, Serum 1.24 mg/dL (0.70-1.30); EST Glomerular Filtration Rate 74 mL/min (>60); Est Glom Filt Rate - Afr Amer 89 mL/min (>60); Globulin 4.8 g/dL (2.2-4.2); Glucose 92 mg/dL (74-106); Potassium 3.5 mmol/L (3.5-5.1); Protein, Total 8.2 g/dL (6.4-8.2); Sodium Level 136 mmol/L (136-145)
[2020-02-29 09:28] LABS: Eosinophil 4 % (0-5); Lymphocyte 29 % (19-41); Metamyelocyte 2 % (0-1); Neutrophil-Segmented 65 % (47-70); Platelet Estimate ADEQUATE (ADEQ); Red Cell Morphology NORM C+C NORMAL (NORM C&C); Total Cells Counted 100 (MANUAL DIFF)
[2020-02-29 09:29] LABS: Absolute Lymphocyte Count 1.71 X10^3/uL (0.83-4.51); Absolute Neutrophil Count 3.8 X10^3/uL (2.0-7.7)
[2020-02-29 14:15] LABS: Pathologist Review Reviewed
== END ==
PROVIDERS: PCP Family Medicine
DX: C62.90 Malignant neoplasm of unspecified testis, unspecified whether descended or undescended (principal); C79.9 Secondary malignant neoplasm of unspecified site
CPT/HCPCS: 36591; 80048; 80076; 85025; A4216

== ENCOUNTER → 2020-03-01 08:25 | Outpatient (CLI) | payer MEDICAID, SELFPAY ==
[2020-01-14 11:29] VITALS: BMI 51.2
[2020-03-01 09:09] LABS: Hematocrit 41.3 % (40-54); Hemoglobin 13.9 g/dL (13.0-16.5); Mean Corp Hgb Conc 33.7 g/dL (32-36); Mean Corpuscular Hgb 28.8 pg (27.0-32.0); Mean Corpuscular Volume 85.7 fL (80-94); Mean Platelet Vol. 10.6 fl (6.2-12.0); POSITIVE COUNT YES; POSITIVE MORPHOLOGY YES; Platelet Count 172 K/mm3 (150-450); RBC Distribution Width CV 11.8 % (11.6-14.6); Red Blood Count 4.82 M/mm3 (4.6-6.2)
[2020-03-01 09:10] LABS: Differential Indicated MANUAL DIFF
[2020-03-01 09:44] LABS: Eosinophil 2 % (0-5); Lymphocyte 51 % (19-41); Monocyte 9 % (0-10); Neutrophil-Segmented 38 % (47-70); Platelet Estimate ADEQUATE (ADEQ); Red Cell Morphology NORM C+C NORMAL (NORM C&C); Total Cells Counted 100 (MANUAL DIFF)
[2020-03-01 09:45] LABS: Absolute Neutrophil Count 1.1 X10^3/uL (2.0-7.7)
[2020-03-02 15:47] LABS: Pathologist Review Reviewed
== END ==
PROVIDERS: PCP Family Medicine
DX: C62.90 Malignant neoplasm of unspecified testis, unspecified whether descended or undescended (principal)
CPT/HCPCS: 36592; 85025; A4216

== ENCOUNTER → 2020-03-02 08:36 | Outpatient (CLI) | payer MEDICAID, SELFPAY ==
[2020-01-14 11:29] VITALS: BMI 51.2
[2020-03-02 09:02] LABS: Absolute Lymphocyte Count 1.63 X10^3/uL (0.83-4.51); Absolute Neutrophil Count 0.2 X10^3/uL (2.0-7.7); Basophil# 0.03 X10^3/uL; Basophil% 1.1 % (0-1); Eosinophil# 0.22 X10^3/uL; Eosinophils% 8.2 % (0-5); Hematocrit 42.2 % (40-54); Lymphocyte # 1.63 X10^3/ul (4.0); Lymphocyte % 60.6 % (19-41); Mean Corp Hgb Conc 33.2 g/dL (32-36); Mean Corpuscular Hgb 28.4 pg (27.0-32.0); Mean Corpuscular Volume 85.6 fL (80-94); Mean Platelet Vol. 10.2 fl (6.2-12.0); Monocyte# 0.64 X10^3/uL; Monocyte% 23.8 % (0-10); NRBC Flagged by Analyzer 0 % (0-5); Neutrophil # 0.15 X10^3/uL (2.7-7.7); Neutrophil % 5.6 % (47-70); POSITIVE DIFFERENTIAL YES; Platelet Count 178 K/mm3 (150-450); RBC Distribution Width CV 11.9 % (11.6-14.6); RBC Distribution Width SD 36.9 fl (35.1-43.9); Red Blood Count 4.93 M/mm3 (4.6-6.2); White Blood Count 2.7 K/mm3 (4.4-11.0)
[2020-03-02 09:03] LABS: Differential Indicated SCAN CRITERIA MET
[2020-03-02 16:59] LABS: Xtra Tube EP Lab EXTRA TUBE
== END ==
PROVIDERS: PCP Family Medicine
DX: C62.90 Malignant neoplasm of unspecified testis, unspecified whether descended or undescended (principal)
CPT/HCPCS: 36592; 85025; A4216

== ENCOUNTER → 2020-03-03 08:28 | Outpatient (CLI) | payer MEDICAID, SELFPAY ==
[2020-01-14 11:29] VITALS: BMI 51.2
[2020-03-03 09:00] LABS: Absolute Lymphocyte Count 1.87 X10^3/uL (0.83-4.51); Absolute Neutrophil Count 2.7 X10^3/uL (2.0-7.7); Basophil# 0.04 X10^3/uL; Basophil% 0.6 % (0-1); Eosinophil# 0.14 X10^3/uL; Eosinophils% 2.1 % (0-5); Hematocrit 44.2 % (40-54); Hemoglobin 14.5 g/dL (13.0-16.5); Lymphocyte # 1.87 X10^3/ul (4.0); Lymphocyte % 28.6 % (19-41); Mean Corp Hgb Conc 32.8 g/dL (32-36); Mean Corpuscular Hgb 28.3 pg (27.0-32.0); Mean Corpuscular Volume 86.2 fL (80-94); Mean Platelet Vol. 9.9 fl (6.2-12.0); Monocyte# 1.63 X10^3/uL; Monocyte% 24.9 % (0-10); NRBC Flagged by Analyzer 0.5 % (0-5); Neutrophil # 2.72 X10^3/uL (2.7-7.7); Neutrophil % 41.7 % (47-70); POSITIVE DIFFERENTIAL YES; POSITIVE MORPHOLOGY YES; Platelet Count 189 K/mm3 (150-450); RBC Distribution Width CV 11.9 % (11.6-14.6); RBC Distribution Width SD 37.3 fl (35.1-43.9); Red Blood Count 5.13 M/mm3 (4.6-6.2); White Blood Count 6.5 K/mm3 (4.4-11.0)
[2020-03-03 09:01] LABS: Differential Indicated SCAN CRITERIA MET
[2020-03-03 09:33] LABS: Dohle Bodies 2+; Toxic Granulation 2+
[2020-03-03 09:34] LABS: Anisocytosis 1+; Macrocytosis 1+; Platelet Estimate ADEQUATE (ADEQ); Platelet Morphology LARGE; Polychromasia 1+
== END ==
PROVIDERS: PCP Family Medicine
DX: C62.90 Malignant neoplasm of unspecified testis, unspecified whether descended or undescended (principal)
CPT/HCPCS: 36592; 85025; A4216

== ENCOUNTER → 2020-03-24 11:38 | Outpatient (CLI) | payer MEDICAID, SELFPAY ==
[2020-01-14 11:29] VITALS: BMI 51.2
[2020-03-24 12:19] LABS: Absolute Lymphocyte Count 0.59 X10^3/uL (0.83-4.51); Absolute Neutrophil Count 0.4 X10^3/uL (2.0-7.7); Basophil# 0.03 X10^3/uL; Basophil% 1.9 % (0-1); Eosinophil# 0.02 X10^3/uL; Eosinophils% 1.3 % (0-5); Hematocrit 34.1 % (40-54); Hemoglobin 11.4 g/dL (13.0-16.5); Lymphocyte # 0.59 X10^3/ul (4.0); Lymphocyte % 37.1 % (19-41); Mean Corp Hgb Conc 33.4 g/dL (32-36); Mean Corpuscular Hgb 28.3 pg (27.0-32.0); Mean Corpuscular Volume 84.6 fL (80-94); Mean Platelet Vol. 9.3 fl (6.2-12.0); Monocyte# 0.55 X10^3/uL; Monocyte% 34.6 % (0-10); NRBC Flagged by Analyzer 1.3 % (0-5); Neutrophil # 0.39 X10^3/uL (2.7-7.7); Neutrophil % 24.5 % (47-70); POSITIVE DIFFERENTIAL YES; POSITIVE MORPHOLOGY YES; Platelet Count 116 K/mm3 (150-450); RBC Distribution Width SD 36.5 fl (35.1-43.9); Red Blood Count 4.03 M/mm3 (4.6-6.2); White Blood Count 1.6 K/mm3 (4.4-11.0)
[2020-03-24 12:37] LABS: AST(SGOT) 13 U/L (15-37); Alanine Aminotransfer ALT/SGPT 70 U/L (16-61); Albumin, Serum 3.4 g/dL (3.2-5.0); Alkaline Phosphatase 76 U/L (45-117); Anion Gap 6 (5-15); BUN 13 mg/dL (7-18); Bilirubin, Direct 0.09 mg/dL (0.00-0.30); Calcium,Total 9.2 mg/dL (8.5-10.1); Chloride 102 mmol/L (98-107); EST Glomerular Filtration Rate 94 mL/min (>60); Est Glom Filt Rate - Afr Amer 114 mL/min (>60); Globulin 4.2 g/dL (2.2-4.2); Glucose 80 mg/dL (74-106); Magnesium 1.9 mg/dL (1.6-2.6); Phosphorus 4.1 mg/dL (2.5-4.9); Potassium 3.8 mmol/L (3.5-5.1); Protein, Total 7.6 g/dL (6.4-8.2); Sodium Level 136 mmol/L (136-145)
[2020-03-24 12:42] LABS: Differential Indicated SCAN CRITERIA MET
[2020-03-24 12:49] LABS: Differential Comment SCANNED
[2020-03-24 20:17] LABS: Xtra Tube EP Lab EXTRA TUBE
[2020-03-25 13:48] LABS: Pathologist Review Reviewed
== END ==
PROVIDERS: PCP Family Medicine
DX: C62.90 Malignant neoplasm of unspecified testis, unspecified whether descended or undescended (principal); Z79.899 Other long term (current) drug therapy
CPT/HCPCS: 36415; 36592; 80048; 80076; 83735; 84100; 85025; A4216

== ENCOUNTER → 2020-04-21 13:13 | Outpatient (CLI) | payer MEDICAID, SELFPAY ==
[2020-01-14 11:29] VITALS: BMI 51.2
[2020-04-21 14:05] LABS: Absolute Neutrophil Count 1.2 X10^3/uL (2.0-7.7); Basophil# 0.04 X10^3/uL; Basophil% 1.1 % (0-1); Eosinophil# 0.05 X10^3/uL; Eosinophils% 1.4 % (0-5); Hematocrit 28.3 % (40-54); Hemoglobin 9.6 g/dL (13.0-16.5); Lymphocyte % 27.7 % (19-41); Mean Corp Hgb Conc 33.9 g/dL (32-36); Mean Corpuscular Hgb 29.6 pg (27.0-32.0); Mean Corpuscular Volume 87.3 fL (80-94); Monocyte# 1.26 X10^3/uL; Monocyte% 34.9 % (0-10); NRBC Flagged by Analyzer 5.3 % (0-5); Neutrophil # 1.22 X10^3/uL (2.7-7.7); Neutrophil % 33.8 % (47-70); POSITIVE COUNT YES; POSITIVE MORPHOLOGY YES; Platelet Count 180 K/mm3 (150-450); RBC Distribution Width CV 14.4 % (11.6-14.6); RBC Distribution Width SD 44.8 fl (35.1-43.9); Red Blood Count 3.24 M/mm3 (4.6-6.2); White Blood Count 3.6 K/mm3 (4.4-11.0)
[2020-04-21 14:07] LABS: Differential Indicated SCAN CRITERIA MET
[2020-04-21 14:29] LABS: AST(SGOT) 17 U/L (15-37); Alanine Aminotransfer ALT/SGPT 81 U/L (16-61); Albumin, Serum 3.4 g/dL (3.2-5.0); Alkaline Phosphatase 81 U/L (45-117); Anion Gap 6 (5-15); BUN 16 mg/dL (7-18); BUN/Creat Ratio 16.5 RATIO (10-20); Bilirubin, Direct 0.07 mg/dL (0.00-0.30); Calcium,Total 8.9 mg/dL (8.5-10.1); Chloride 105 mmol/L (98-107); Creatinine, Serum 0.97 mg/dL (0.70-1.30); EST Glomerular Filtration Rate 98 mL/min (>60); Est Glom Filt Rate - Afr Amer 118 mL/min (>60); Globulin 3.9 g/dL (2.2-4.2); Glucose 86 mg/dL (74-106); Potassium 3.7 mmol/L (3.5-5.1); Protein, Total 7.3 g/dL (6.4-8.2); Sodium Level 140 mmol/L (136-145)
[2020-04-21 22:01] LABS: Xtra Tube EP Lab EXTRA TUBE
== END ==
PROVIDERS: PCP Family Medicine
DX: C62.90 Malignant neoplasm of unspecified testis, unspecified whether descended or undescended (principal)
CPT/HCPCS: 36591; 80048; 80076; 83735; 84100; 85025; A4216

== ENCOUNTER → 2020-04-28 12:51 | Outpatient (CLI) | payer MEDICAID, SELFPAY ==
[2020-01-14 11:29] VITALS: BMI 51.2
[2020-04-28 13:32] LABS: Absolute Lymphocyte Count 0.88 X10^3/uL (0.83-4.51); Absolute Neutrophil Count 4.8 X10^3/uL (2.0-7.7); Basophil# 0.02 X10^3/uL; Basophil% 0.3 % (0-1); Eosinophil# 0.02 X10^3/uL; Eosinophils% 0.3 % (0-5); Hematocrit 31.1 % (40-54); Hemoglobin 9.9 g/dL (13.0-16.5); Lymphocyte # 0.88 X10^3/ul (4.0); Lymphocyte % 13.8 % (19-41); Mean Corp Hgb Conc 31.8 g/dL (32-36); Mean Corpuscular Hgb 28.5 pg (27.0-32.0); Mean Corpuscular Volume 89.6 fL (80-94); Mean Platelet Vol. 9.3 fl (6.2-12.0); Monocyte# 0.58 X10^3/uL; Monocyte% 9.1 % (0-10); NRBC Flagged by Analyzer 0 % (0-5); Neutrophil # 4.79 X10^3/uL (2.7-7.7); Neutrophil % 75.4 % (47-70); Platelet Count 252 K/mm3 (150-450); RBC Distribution Width SD 49.5 fl (35.1-43.9); Red Blood Count 3.47 M/mm3 (4.6-6.2); White Blood Count 6.4 K/mm3 (4.4-11.0)
[2020-04-28 13:53] LABS: AST(SGOT) 13 U/L (15-37); Alanine Aminotransfer ALT/SGPT 44 U/L (16-61); Albumin, Serum 3.4 g/dL (3.2-5.0); Alkaline Phosphatase 107 U/L (45-117); Anion Gap 5 (5-15); BUN 9 mg/dL (7-18); BUN/Creat Ratio 9.5 RATIO (10-20); Bilirubin, Direct 0.05 mg/dL (0.00-0.30); Chloride 109 mmol/L (98-107); Creatinine, Serum 0.94 mg/dL (0.70-1.30); EST Glomerular Filtration Rate 101 mL/min (>60); Est Glom Filt Rate - Afr Amer 122 mL/min (>60); Globulin 4.2 g/dL (2.2-4.2); Glucose 118 mg/dL (74-106); Protein, Total 7.6 g/dL (6.4-8.2); Sodium Level 142 mmol/L (136-145)
[2020-04-28 21:26] LABS: Xtra Tube EP Lab EXTRA TUBE
== END ==
PROVIDERS: PCP Family Medicine
DX: C62.90 Malignant neoplasm of unspecified testis, unspecified whether descended or undescended (principal)
CPT/HCPCS: 36591; 80048; 80076; 85025; A4216

== ENCOUNTER → 2020-05-10 13:14 | Outpatient (CLI) | payer MEDICAID, SELFPAY ==
[2020-01-14 11:29] VITALS: BMI 51.2
[2020-05-10 13:46] LABS: Absolute Lymphocyte Count 0.64 X10^3/uL (0.83-4.51); Absolute Neutrophil Count 0.7 X10^3/uL (2.0-7.7); Basophil# 0.01 X10^3/uL; Basophil% 0.7 % (0-1); Eosinophil# 0.02 X10^3/uL; Eosinophils% 1.3 % (0-5); Hematocrit 27.2 % (40-54); Hemoglobin 9.1 g/dL (13.0-16.5); Lymphocyte # 0.64 X10^3/ul (4.0); Lymphocyte % 41.8 % (19-41); Mean Corp Hgb Conc 33.5 g/dL (32-36); Mean Corpuscular Hgb 29.4 pg (27.0-32.0); Mean Platelet Vol. 10.2 fl (6.2-12.0); Monocyte# 0.13 X10^3/uL; Monocyte% 8.5 % (0-10); NRBC Flagged by Analyzer 0 % (0-5); Neutrophil # 0.66 X10^3/uL (2.7-7.7); Neutrophil % 43.1 % (47-70); POSITIVE DIFFERENTIAL YES; Platelet Count 138 K/mm3 (150-450); RBC Distribution Width CV 15.9 % (11.6-14.6); RBC Distribution Width SD 50.5 fl (35.1-43.9); Red Blood Count 3.09 M/mm3 (4.6-6.2); White Blood Count 1.5 K/mm3 (4.4-11.0)
[2020-05-10 13:49] LABS: Differential Indicated SCAN CRITERIA MET
[2020-05-10 14:01] LABS: AST(SGOT) 16 U/L (15-37); Alanine Aminotransfer ALT/SGPT 84 U/L (16-61); Albumin, Serum 3.6 g/dL (3.2-5.0); Alkaline Phosphatase 78 U/L (45-117); Anion Gap 5 (5-15); BUN 17 mg/dL (7-18); BUN/Creat Ratio 17.2 RATIO (10-20); Bilirubin, Direct 0.09 mg/dL (0.00-0.30); Calcium,Total 8.7 mg/dL (8.5-10.1); Chloride 105 mmol/L (98-107); Creatinine, Serum 0.99 mg/dL (0.70-1.30); EST Glomerular Filtration Rate 95 mL/min (>60); Est Glom Filt Rate - Afr Amer 115 mL/min (>60); Glucose 112 mg/dL (74-106); Potassium 3.5 mmol/L (3.5-5.1); Protein, Total 7.6 g/dL (6.4-8.2); Sodium Level 138 mmol/L (136-145)
[2020-05-10 21:43] LABS: Xtra Tube EP Lab EXTRA TUBE
== END ==
PROVIDERS: PCP Family Medicine
DX: C62.90 Malignant neoplasm of unspecified testis, unspecified whether descended or undescended (principal)
CPT/HCPCS: 36415; 80048; 80076; 85025; 96523; A4216

== ENCOUNTER → 2020-05-18 12:30 | Outpatient (CLI) | payer MEDICAID, SELFPAY ==
[2020-01-14 11:29] VITALS: BMI 51.2
[2020-05-18 13:38] LABS: AST(SGOT) 20 U/L (15-37); Alanine Aminotransfer ALT/SGPT 45 U/L (16-61); Albumin, Serum 3.5 g/dL (3.2-5.0); Alkaline Phosphatase 108 U/L (45-117); Anion Gap 4 (5-15); BUN 10 mg/dL (7-18); BUN/Creat Ratio 10.9 RATIO (10-20); Bilirubin, Direct 0.07 mg/dL (0.00-0.30); Chloride 104 mmol/L (98-107); Creatinine, Serum 0.92 mg/dL (0.70-1.30); EST Glomerular Filtration Rate 104 mL/min (>60); Est Glom Filt Rate - Afr Amer 126 mL/min (>60); Globulin 4.2 g/dL (2.2-4.2); Glucose 108 mg/dL (74-106); Potassium 3.9 mmol/L (3.5-5.1); Protein, Total 7.7 g/dL (6.4-8.2); Sodium Level 138 mmol/L (136-145)
[2020-05-18 14:01] LABS: Absolute Lymphocyte Count 0.81 X10^3/uL (0.83-4.51); Absolute Neutrophil Count 5.9 X10^3/uL (2.0-7.7); Basophil# 0.03 X10^3/uL; Basophil% 0.4 % (0-1); Eosinophil# 0.01 X10^3/uL; Eosinophils% 0.1 % (0-5); Hematocrit 28.1 % (40-54); Lymphocyte # 0.81 X10^3/ul (4.0); Lymphocyte % 10.5 % (19-41); Mean Corpuscular Hgb 29.5 pg (27.0-32.0); Mean Corpuscular Volume 92.1 fL (80-94); Mean Platelet Vol. 10.1 fl (6.2-12.0); Monocyte# 0.83 X10^3/uL; Monocyte% 10.8 % (0-10); NRBC Flagged by Analyzer 0 % (0-5); Neutrophil # 5.94 X10^3/uL (2.7-7.7); Neutrophil % 77.2 % (47-70); Platelet Count 262 K/mm3 (150-450); RBC Distribution Width CV 17.8 % (11.6-14.6); Red Blood Count 3.05 M/mm3 (4.6-6.2); White Blood Count 7.7 K/mm3 (4.4-11.0)
[2020-05-18 21:19] LABS: Xtra Tube EP Lab EXTRA TUBE
== END ==
PROVIDERS: PCP Family Medicine
DX: C62.90 Malignant neoplasm of unspecified testis, unspecified whether descended or undescended (principal)
CPT/HCPCS: 36591; 80048; 80076; 85025; A4216

== ENCOUNTER → 2020-05-23 08:30 | Outpatient (CLI) | payer MEDICAID, SELFPAY ==
[2020-01-14 11:29] VITALS: BMI 51.2
--- NOTE | 2020-05-23 08:32 | CT_ITS ---
STUDY: CT CHEST WITH CONTRAST REASON FOR EXAM: Male, 29 years old. FOLLOW UP CLINICAL TRIAL FOR MALIGNANT NEOPLASM OF LEFT TESTI. HIGH DOSE CHEMO VS TRADITIONAL CHEMO FOR REOCCURRENCE OF TESTICULAR CANCER. RADIATION DOSAGE (If Supplied By Facility): CTDIvol = ( 23.92 ) mGy, DLP = ( 3122.49 ) mGycm TECHNIQUE: Transaxial imaging was performed following intravenous administration of IV 100 ML ISOVUE 300. Multiplanar coronal and sagittal images were reformatted. Individualized dose optimization techniques were used for this CT. COMPARISON: Comparison is made with prior study dated 02/10/2020. FINDINGS: A right-sided portacatheter. The tip is in the superior vena cava. The previously seen nodule in the right upper lobe has decreased in size. This nodule presently measures 2.15 cm x 1.7 cm. No new nodule is seen. There is no demonstrated pleural abnormality. Normal heart and pericardium. Normal mediastinum. Normal hilar regions. Normal enhanced pulmonary arteries. Normal aorta arch and descending thoracic aorta. Normal osseous structures. Small hiatal hernia. CT/Chest WITH Contrast IMPRESSION: Interval decrease in size of the right upper lobe nodule. No new nodular density is seen. Electronically Signed: Ramiro Jiménez, at 10:35 EST , Service support ,
--- NOTE | 2020-05-23 08:33 | CT_ITS ---
STUDY: CT ABDOMEN AND PELVIS WITH CONTRAST REASON FOR EXAM: Male, 29 years old. FOLLOW UP CLINICAL TRIAL FOR MALIGNANT NEOPLASM OF LEFT TESTI. HIGH DOSE CHEMO VS TRADITIONAL CHEMO FOR REOCCUR ANCE OF TESTICULAR CANCER. RADIATION DOSAGE (If Supplied By Facility): CTDIvol = ( 23.92 ) mGy, DLP = ( 3122.49 ) mGycm TECHNIQUE: Transaxial images were obtained from the dome of the diaphragm to the symphysis pubis with oral contrast. ORAL-READICAT, IV-100 ML ISOVUE 300 was administered. Sagittal and coronal images were reconstructed. Individualized dose optimization techniques were used for this CT. COMPARISON: Comparison is made with prior study dated 02/10/2020 and 01/11/2020. FINDINGS: The visualized lung bases are unremarkable. The visualized portions of the heart are within normal limits. Normal liver. Sludge or small gallstones are seen along the dependent portion of the gallbladder lumen. Normal spleen. Normal pancreas. Normal bilateral adrenal glands. Normal right kidney. Normal left kidney. There is a small hiatal hernia. Normal small intestine. Normal colon. The appendix is visualized and appears normal. Normal abdominal aorta. Normal inferior vena cava. There is borderline retroperitoneal lymphadenopathy with enlarged nodes no greater than 10mm in the short axis diameter. Normal urinary bladder. There is a small umbilical hernia containing fat. Normal osseous structures. CT/Abdomen/Pelvis WITH Contrast IMPRESSION: Stable examination. Small gallstones or sludge along the dependent portion of the gallbladder lumen. Electronically Signed: Ramiro Jiménez, at 10:37 EST , Service support ,
== END ==
PROVIDERS: PCP Family Medicine
DX: C62.92 Malignant neoplasm of left testis, unspecified whether descended or undescended (principal); K80.20 Calculus of gallbladder without cholecystitis without obstruction
CPT/HCPCS: 36591; 71260; 74177; 80048; 80076; 85025; Q9967; A4216

== ENCOUNTER → 2020-05-23 09:06 | Outpatient (CLI) | payer MEDICAID, SELFPAY ==
[2020-01-14 11:29] VITALS: BMI 51.2
[2020-05-23 09:31] LABS: Absolute Lymphocyte Count 1.09 X10^3/uL (0.83-4.51); Absolute Neutrophil Count 4.7 X10^3/uL (2.0-7.7); Basophil# 0.05 X10^3/uL; Basophil% 0.7 % (0-1); Eosinophil# 0.02 X10^3/uL; Eosinophils% 0.3 % (0-5); Hematocrit 26.4 % (40-54); Hemoglobin 8.5 g/dL (13.0-16.5); Lymphocyte # 1.09 X10^3/ul (4.0); Mean Corp Hgb Conc 32.2 g/dL (32-36); Mean Corpuscular Hgb 30.1 pg (27.0-32.0); Mean Corpuscular Volume 93.6 fL (80-94); Mean Platelet Vol. 8.9 fl (6.2-12.0); Monocyte# 0.93 X10^3/uL; Monocyte% 13.7 % (0-10); NRBC Flagged by Analyzer 0 % (0-5); Neutrophil # 4.66 X10^3/uL (2.7-7.7); Neutrophil % 68.4 % (47-70); Platelet Count 253 K/mm3 (150-450); RBC Distribution Width CV 18.7 % (11.6-14.6); RBC Distribution Width SD 61.9 fl (35.1-43.9); Red Blood Count 2.82 M/mm3 (4.6-6.2); White Blood Count 6.8 K/mm3 (4.4-11.0)
[2020-05-23 09:57] LABS: AST(SGOT) 20 U/L (15-37); Alanine Aminotransfer ALT/SGPT 43 U/L (16-61); Albumin, Serum 3.5 g/dL (3.2-5.0); Alkaline Phosphatase 96 U/L (45-117); Anion Gap 7 (5-15); BUN 14 mg/dL (7-18); BUN/Creat Ratio 14.9 RATIO (10-20); Bilirubin, Direct 0.05 mg/dL (0.00-0.30); Calcium,Total 8.7 mg/dL (8.5-10.1); Chloride 106 mmol/L (98-107); Creatinine, Serum 0.94 mg/dL (0.70-1.30); EST Glomerular Filtration Rate 101 mL/min (>60); Est Glom Filt Rate - Afr Amer 123 mL/min (>60); Globulin 3.9 g/dL (2.2-4.2); Glucose 85 mg/dL (74-106); Potassium 3.7 mmol/L (3.5-5.1); Protein, Total 7.4 g/dL (6.4-8.2); Sodium Level 139 mmol/L (136-145)
[2020-05-23 17:27] LABS: Xtra Tube EP Lab EXTRA TUBE
== END ==
PROVIDERS: PCP Family Medicine
DX: C62.90 Malignant neoplasm of unspecified testis, unspecified whether descended or undescended (principal)
CPT/HCPCS: 36591; 80048; 80076; 85025; A4216

== ENCOUNTER → 2020-11-02 10:23 | Outpatient (CLI) | payer MEDICAID, SELFPAY ==
[2020-01-14 11:29] VITALS: BMI 51.2
[2020-11-02 11:03] LABS: Absolute Lymphocyte Count 1.48 X10^3/uL (0.83-4.51); Absolute Neutrophil Count 4.3 X10^3/uL (2.0-7.7); Basophil# 0.03 X10^3/uL; Basophil% 0.5 % (0-1); Eosinophil# 0.19 X10^3/uL; Eosinophils% 2.9 % (0-5); Hematocrit 37.8 % (40-54); Hemoglobin 12.4 g/dL (13.0-16.5); Lymphocyte # 1.48 X10^3/ul (0.83-4.51); Lymphocyte % 22.6 % (19-41); Mean Corp Hgb Conc 32.8 g/dL (32-36); Mean Corpuscular Hgb 28.5 pg (27.0-32.0); Mean Corpuscular Volume 86.9 fL (80-94); Mean Platelet Vol. 8.9 fl (6.2-12.0); Monocyte# 0.54 X10^3/uL; Monocyte% 8.2 % (0-10); NRBC Flagged by Analyzer 0 % (0-5); Neutrophil % 65.5 % (47-70); Platelet Count 284 K/mm3 (150-450); RBC Distribution Width CV 13.4 % (11.6-14.6); RBC Distribution Width SD 42.7 fl (35.1-43.9); Red Blood Count 4.35 M/mm3 (4.6-6.2); White Blood Count 6.6 K/mm3 (4.4-11.0)
[2020-11-02 11:21] LABS: AST(SGOT) 25 U/L (15-37); Alanine Aminotransfer ALT/SGPT 45 U/L (16-61); Albumin, Serum 3.6 g/dL (3.2-5.0); Alkaline Phosphatase 95 U/L (45-117); Anion Gap 2 (5-15); BUN 19 mg/dL (7-18); BUN/Creat Ratio 17.1 RATIO (10-20); Bilirubin, Direct 0.08 mg/dL (0.00-0.30); Calcium,Total 9.2 mg/dL (8.5-10.1); Chloride 107 mmol/L (98-107); Creatinine, Serum 1.11 mg/dL (0.70-1.30); EST Glomerular Filtration Rate 83 mL/min (>60); Est Glom Filt Rate - Afr Amer 101 mL/min (>60); Globulin 4.2 g/dL (2.2-4.2); Glucose 93 mg/dL (74-106); Protein, Total 7.8 g/dL (6.4-8.2); Sodium Level 139 mmol/L (136-145)
[2020-11-02 18:57] LABS: Xtra Tube EP Lab EXTRA TUBE
== END ==
PROVIDERS: PCP Family Medicine
DX: C62.90 Malignant neoplasm of unspecified testis, unspecified whether descended or undescended (principal)
CPT/HCPCS: 36591; 80048; 80076; 85025; A4216

== ENCOUNTER → 2021-07-20 10:06 | Outpatient (CLI) | payer MEDICAID, SELFPAY ==
[2021-07-20 11:37] LABS: Hematocrit 43.1 % (40-54); Hemoglobin 14.4 g/dL (13.0-16.5)
[2021-07-20 12:12] LABS: Estradiol 45.4 pg/mL; Luteinizing Hormone 0.3 mIU/mL
[2021-07-24 12:09] LABS: Testosterone, Free 29.19 ng/dL (5.00-21.00)
[2021-07-24 13:29] LABS: Testosterone, Total 621 ng/dL (264-916)
== END ==
PROVIDERS: PCP Family Medicine
DX: E29.1 Testicular hypofunction (principal)
CPT/HCPCS: 36415; 82670; 83002; 84402; 84403; 85014; 85018

== ENCOUNTER → 2021-08-17 08:25 | Outpatient (CLI) | payer MEDICAID, SELFPAY ==
[2021-08-17 09:37] LABS: Absolute Lymphocyte Count 1.86 X10^3/uL (0.83-4.51); Absolute Neutrophil Count 4.1 X10^3/uL (2.0-7.7); Basophil# 0.03 X10^3/uL; Basophil% 0.4 % (0-1); Eosinophils% 4.2 % (0-5); Hematocrit 42.2 % (40-54); Hemoglobin 14.1 g/dL (13.0-16.5); Lymphocyte # 1.86 X10^3/ul (0.83-4.51); Lymphocyte % 26.2 % (19-41); Mean Corp Hgb Conc 33.4 g/dL (32-36); Mean Corpuscular Hgb 29.6 pg (27.0-32.0); Mean Corpuscular Volume 88.7 fL (80-94); Mean Platelet Vol. 9.1 fl (6.2-12.0); Monocyte# 0.76 X10^3/uL; Monocyte% 10.7 % (0-10); NRBC Flagged by Analyzer 0 % (0-5); Neutrophil # 4.12 X10^3/uL (2.7-7.7); Neutrophil % 58.2 % (47-70); Platelet Count 309 K/mm3 (150-450); RBC Distribution Width CV 12.8 % (11.6-14.6); RBC Distribution Width SD 41.8 fl (35.1-43.9); Red Blood Count 4.76 M/mm3 (4.6-6.2); White Blood Count 7.1 K/mm3 (4.4-11.0)
[2021-08-17 10:09] LABS: ALB/GLOB Ratio 0.9 RATIO (0.9-2.4); AST(SGOT) 32 U/L (15-37); Alanine Aminotransfer ALT/SGPT 38 U/L (16-61); Albumin, Serum 3.6 g/dL (3.2-5.0); Alkaline Phosphatase 84 U/L (45-117); Anion Gap 2 (5-15); BUN 17 mg/dL (7-18); Calcium,Total 8.7 mg/dL (8.5-10.1); Chloride 106 mmol/L (98-107); Creatinine, Serum 1.13 mg/dL (0.70-1.30); EST Glomerular Filtration Rate 81 mL/min (>60); Est Glom Filt Rate - Afr Amer 98 mL/min (>60); Glucose 98 mg/dL (74-106); LDH 181 U/L (87-241); Potassium 4.3 mmol/L (3.5-5.1); Protein, Total 7.6 g/dL (6.4-8.2); Sodium Level 138 mmol/L (136-145)
[2021-08-18 13:45] LABS: AFP, Tumor Marker 2.1 ng/mL (0.0-5.7); HCG BETA-SUBUNIT QUANT. < 1 mIU/mL (0-3)
== END ==
PROVIDERS: PCP Family Medicine
DX: C62.92 Malignant neoplasm of left testis, unspecified whether descended or undescended (principal)
CPT/HCPCS: 36415; 80053; 82105; 83615; 84702; 85025

== ENCOUNTER → 2022-09-12 | Outpatient (CLI) | payer MEDICAID, SELFPAY ==
[2022-09-12 15:02] LABS: Estradiol 45.8 pg/mL
== END | disposition home or self-care (01) ==
LOC: LAB 10:05
PROVIDERS: PCP Family Medicine
DX: E29.1 Testicular hypofunction (principal)
CPT/HCPCS: 36415; 82670; 84270; 84402; 84403

== ENCOUNTER 2025-02-04 11:11 | Emergency (ER) | payer MEDICAID, SELFPAY ==
[2025-02-04 11:11] VITALS: BP 178/100; PULSE 74; RESP 14; TEMP 36.4; O2SAT 98; BMI 48.8
[2025-02-04 12:51] LABS: Hematocrit 45.1 % (40-54); Hemoglobin 15.6 g/dL (13.0-16.5); Immature Granulocytes Count 0.020 X10^3/uL (0.0-0.0); Mean Corp Hgb Conc 34.6 g/dL (32-36); Mean Corpuscular Volume 85.3 fL (80-94); Mean Platelet Vol. 9.0 fl (6.2-12.0); NRBC Flagged by Analyzer 0 % (0-5); Platelet Count 239 K/mm3 (150-450); RBC Distribution Width CV 12.3 % (11.6-14.6); RBC Distribution Width SD 38.1 fl (35.1-43.9); Red Blood Count 5.29 M/mm3 (4.6-6.2); White Blood Count 8.2 K/mm3 (4.4-11.0)
[2025-02-04 13:17] LABS: AST(SGOT) 28 U/L (<=37); Alanine Aminotransfer ALT/SGPT 35 U/L (<=46); Albumin, Serum 4.2 g/dL (3.5-5.0); Alkaline Phosphatase 67 U/L (40-129); Anion Gap 18 (5-15); BUN 10 mg/dL (4-19); BUN/Creat Ratio 9.4 RATIO (10-20); Calcium,Total 9.4 mg/dL (7.6-11.0); Carbon Dioxide 18.1 mmol/L (21.0-32.0); Chloride 105 mmol/L (98-108); Estimated Creatinine Clearance 156.80 ml/min (50-250); Globulin 3.4 g/dL (2.2-4.2); Glucose 81 mg/dL (70-99); Lipase 22 U/L (13-75); Potassium 3.8 mmol/L (3.3-5.1)
[2025-02-04] MEDS: 0.9% Normal Saline (1000mL) 1,000 ML 999 ML IV (13:35)
[2025-02-04 13:36] VITALS: BP 154/86; PULSE 55; RESP 16; O2SAT 99
--- NOTE | 2025-02-04 14:08 | EX.ED.DYSGE1 ---
HPI History of Present Illness Chief Complaint: Nausea/Vomiting Narrative Narrative: Patient is a 34-year-old male with history of left testicular cancer (treated) and osteoarthritis of his left knee presenting with an episode of vomiting with black flecks and concern for hematemesis. Patient does note that he chews tobacco so is not sure if those flecks were chewed that he accidentally swallowed. He notes for the past day or so he has had diarrhea and bubble gut. Denies any abdominal pain. Denies any nausea right now. States sometimes he will drink a lot of water and just randomly throw up which is what he describes as happening today. He does take NSAIDs intermittently. Denies any known history of any GI bleeding or stomach ulcers. Not on any blood thinners. Denies any fever or chills. Denies any URI symptoms. No other complaints or concerns at this time. [facility] Medical History PORT PLACEMENT Back pain Anxiety and depression Sleep apnea Mass of left testicle Home Medications ?Medication ?Instructions ?Recorded ?Last Taken ?Type citalopram 20 mg tablet 20 mg PO DAILY 02/06/18 Unknown History loratadine 10 mg tablet (Allergy 10 mg PO QDAY 01/01/25 Unknown History Relief (loratadine)) methylprednisolone 4 mg tablets in See Rx Instructions PO PER PKG DIR 01/01/25 Unknown Rx a dose pack (Medrol (Compa)) #21 tabs testosterone cypionate 200 mg/mL 100 mg IM QWEEK 01/01/25 Unknown History intramuscular oil omeprazole 40 mg capsule,delayed 40 mg PO DAILY #30 caps 02/04/25 Unknown Rx release Allergy/AdvReac Type Severity Reaction Status Date / Time No Known Allergies Allergy Verified 02/04/25 11:11 Family History Mother Diabetes Surgical History History of orchiectomy, unilateral History of knee surgery Social History Smoking Status: Current every day smoker tobacco type: smokeless tobacco ROS ROS ED Constitutional Constitutional ED: Denies chills or fever(s) Gastrointestinal Gastrointestinal: Reports diarrhea, vomiting and other Details: brown spots in vomit ; Denies abdominal pain, melena or nausea Genitourinary Genitourinary ED: Denies dysuria Musculoskeletal Musculoskeletal: Denies arthralgias or myalgias Integumentary Denies rash Neurologic Neurologic: Denies headache(s), paresthesias or weakness Hematologic/Lymphatic Hematologic/Lymphatic: Denies easy bleeding or easy bruising EXAM Physical Exam Const Vital Signs: 02/04/25 11:11 02/04/25 13:36 Temperature 97.5 F L Temperature Source Temporal Pulse Rate 74 555 H Respiratory Rate 14 16 Blood Pressure 178/100 H 154/86 H Blood Pressure Mean 126 108 Pulse Ox 98 99 Oxygen Delivery Method Room Air Room Air General Appearance ED: Negative for pallor HEENT Reports moist mucous membranes Negative for trauma Eyes General Eye ED: Negative for pale conjunctiva Chest Wall inspection of chest normal and palpation of chest normal Resp normal respiratory effort and clear to auscultation bilaterally Cardio regular rate, regular rhythm and no murmurs GI non-tender and non-distended Auscultation: hyperactive bowel sounds Palpation: soft; Negative for tender, guarding or mass Back/Spine no CVA tenderness Extremity normal to inspection Neuro oriented x3 Sensorium / Orientation: alert Motor Exam: Negative for general weakness Psych mental status grossly normal Skin no rashes or lesions noted and no wounds General Skin Exam: Negative for pallor MDM MDM MDM Narrative Medical decision making narrative: Patient valuated for 1 episode of vomiting with brown specks in it and concern for hematemesis. Also had some associated diarrhea but denies any black or blood in his stool. Differential includes swallowed tobacco, gastritis, peptic ulcer disease and esophagitis. Patient overall is well-appearing. CBC obtained checking for hemoglobin. This is normal. CMP shows normal BUN and creatinine, very low suspicion for ongoing upper GI bleed. He does have a low bicarb 18 and elevated anion gap of 18. He has been having diarrhea and I suspect he has some associated depletion from this. Was ordered IV fluids however his IV infiltrated. As he is able to tolerate p.o. and otherwise has normal electrolytes he is comfortable pushing fluids and electrolyte solution such as propel or Gatorade at home. Patient be started empirically on PPI therapy given outpatient follow-up with GI. Given return precautions. Counseled on avoiding NSAIDs because of increased risk of gastritis. He verbalizes agreement to this plan. Discharged home in stable condition. Lab Data Labs: Laboratory Results - last 24 hr 02/04/25 12:37 WBC 8.2 RBC 5.29 Hgb 15.6 Hct 45.1 MCV 85.3 MCH 29.5 MCHC 34.6 RDW Std Deviation 38.1 RDW Coeff of Shai 12.3 Plt Count 239 MPV 9.0 Immature Gran % (Auto) 0.200 Neut % (Auto) 67.3 Lymph % (Auto) 24.7 [place] % (Auto) 6.1 Eos % (Auto) 1.3 Baso % (Auto) 0.4 Absolute Neuts (auto) 5.5 Absolute Lymphs (auto) 2.03 Nucleated RBC % 0 Sodium 141 Potassium 3.8 Chloride 105 Carbon Dioxide 18.1 L Anion Gap 18 H BUN 10 Creatinine 1.06 Estim Creat Clear Calc 156.80 Est GFR (MDRD) Non-Af 95 BUN/Creatinine Ratio 9.4 L Glucose 81 Calcium 9.4 Total Bilirubin 0.50 AST 28 ALT 35 Alkaline Phosphatase 67 Total Protein 7.6 Albumin 4.2 Globulin 3.4 Albumin/Globulin Ratio 1.3 Lipase 22 Discharge Plan Triage Chief Complaint: Nausea/Vomiting ED Provider: Brook Bobby Dx/Rx/DC Orders Clinical Impression: Nausea vomiting and diarrhea Instructions: ED Gastroenteritis, Viral (Adult) Prescriptions: New omeprazole 40 mg capsule,delayed release(DR/EC) 40 mg PO DAILY Qty: 30 0RF No Action testosterone cypionate 200 mg/mL oil 100 mg IM QWEEK loratadine [Allergy Relief (loratadine)] 10 mg tablet 10 mg PO QDAY methylprednisolone [Medrol (Compa)] 4 mg tablets,dose pack See Rx Instructions PO PER PKG DIR Qty: 21 0RF Rx Instructions: PO PER PKG DIR for 6 days citalopram 20 MG tablet 20 mg PO DAILY Patient Comments: TAKE 1 TABLET BY MOUTH ONCE DAILY Primary Care Provider: Nia Burr Referrals: Nia Burr DO [Primary Care Provider, Family Practice] FriendJonathan DO [Med Staff - Active Staff, Gastroenterology] Activity Restrictions/Additional Instructions: Your workup today was reassuring but did show some signs of dehydration. No signs of anemia or blood work findings consistent with an upper GI bleeding however We have truly noticed with direct visualization or analysis of stomach contents. This was not done today. Please follow-up with GI for outpatient follow-up with this. I would avoid NSAIDs and take Tylenol instead for pain as ibuprofen or naproxen can be irritating to the stomach lining and increase the risk of ulcers. Print Language: [place] Disposition Disposition: Home, Self Care
[2025-02-04 14:28] VITALS: BP 154/86; PULSE 55; RESP 16; TEMP 36.4; O2SAT 99
== END 2025-02-04 14:30 | disposition home or self-care (01) ==
PROVIDERS: Emergency Provider Emergency Medicine; PCP Family Medicine; Visit Provider Emergency Medicine
DX: R11.2 Nausea with vomiting, unspecified (principal); R19.7 Diarrhea, unspecified; F17.220 Nicotine dependence, chewing tobacco, uncomplicated
CPT/HCPCS: 80053; 83690; 85025; 99282; A4216